=== PATIENT | male | born 1990 | race Caucasian/White ===

== ENCOUNTER 2022-05-12 21:25 | Inpatient (IN) | payer MEDICAID, SELFPAY ==
[2022-05-12 21:31] VITALS: BP 123/88; PULSE 100; RESP 16; TEMP 37.1; O2SAT 96; BMI 23.0
--- NOTE | 2022-05-12 21:54 | CRLHL7_ITS ---
For Patients: As a result of the Century Cures Act, medical imaging exams and procedure reports are released immediately into your electronic medical record. You may view this report before your referring provider. If you have questions, please contact your health care provider. INDICATION: Right lower quadrant pain. Vomiting. TECHNIQUE: CT abdomen and pelvis acquired with 79 mL Isovue 370 contrast. COMPARISON: None. FINDINGS: Lower chest: No focal consolidation. Liver: No suspicious focal hepatic lesion. Gallbladder and bile ducts: Unremarkable. Pancreas: Unremarkable. Spleen: Unremarkable. Adrenal glands: Unremarkable. Kidneys: Kidneys enhance symmetrically, without hydronephrosis. Retroperitoneum: No lymphadenopathy. Bowel and mesentery: Bowel is nonobstructed. Normal appendix. No significant ascites. No pneumoperitoneum. Bladder: Mild circumferential bladder wall thickening. Reproductive organs: No prostatomegaly. Slight asymmetric prominence of the right seminal vesicles. Pelvic lymph nodes: No lymphadenopathy. Vessels: Unremarkable. Abdominal wall: No acute abdominal wall abnormality. Bones: No suspicious/aggressive focal osseous lesion. IMPRESSION: 1. Mild circumferential bladder wall thickening, may reflect cystitis. Recommend correlation with urinalysis. 2. Asymmetric prominence of the right seminal vesicles, which is nonspecific but can be seen in setting of seminal vesiculitis. 3. Normal appendix. Please note that all CT scans at this facility use dose modulation, iterative reconstruction, and/or weight-based dosing when appropriate to reduce radiation dose to as low as reasonably achievable. Dictated by Ita Dunbar MD @ 05/13/2022 12:35:48 AM (Electronically Signed)
--- NOTE | 2022-05-12 21:55 | ED.ABDPAIN ---
HPI - Abdominal Pain General Chief Complaint: Abdominal Pain Stated Complaint: extreme abdomen pain, vomiting Time Seen by Provider: 05/12/22 21:50 History of Present Illness HPI narrative: Pt is a 31 year old Type 1 Diabetic who presents with 2-3 days of lower abd pain. Pain is in the lower abd in the midline and RLQ. Patient has been eating a limited amount and has been having dark stools. Pt has no fever or chills. No nausea or vomiting. Pt has had no similar symptoms. He has not taken any significant pain medication at home and states the pain is sharp and severe. No other symptoms such as chest pain, shortness of breath or dysuria. Related Data Home Medications Medication Instructions Recorded Confirmed novolin R U-100 05/12/22 Allergies Allergy/AdvReac Type Severity Reaction Status Date / Time Penicillins Allergy Hives Verified 05/12/22 21:40 Review of Systems Status of ROS Reports: 10 or more systems reviewed and unremarkable except as noted in History and below [facility] Medical History Diabetes, type I Social History Smoking Status: Former smoker Do you use any of these nicotine containing products: Smokeless Tobacco How often do you have a drink containing alcohol: never AUDIT-C Alcohol total score: 0 Non-prescribed substance use: denies use Exam Narrative: Exam Narrative: EXAM GENERAL: Patient appears ucomfortable. EYES: No scleral icterus. LYMPH: No supraclavicular or cervical lymphadenopathy. SKIN: Visible skin seen during exam normal or with benign process only. EXT: No dependent lower extremity pedal edema. HEART: Regular rate and rhythm with no murmurs, rubs, or gallops. LUNGS: Clear to auscultation bilaterally with no crackles or wheezes. ABD: Tender to palpation in the lower abd with mild peritonitis. Hypoactive bowel sounds. Mild distension. PSYCH: Good eye contact, speech is not pressured. Const: Vital Signs, click to edit/add: Vital Signs - 24 hr 05/12/22 21:31 Temperature 98.8 F Pulse Rate [Right Pulse Oximeter] 100 Respiratory Rate 16 Blood Pressure [Le ft Upper Arm] 123/88 Pulse Oximetry 96 Oxygen Delivery Me thod Room Air Course Course Hospital Course: IV established. CBC, CMP, Lipase, Lactate, Amylase, Urinalysis, CT of abd and pelvis collected Reevaluation(s) Reevaluation #1: Pt without telling us gave himself 30 units of Novulin R insulin. Metabolic panel comes back showing evidence of DKA with Anion Gap of 26. IV started as well as insulin drip. Time: 22:47 Reevaluation #2: Clarification on medication. Pt takes a variable amount of Novlulin R up to 5-6 times per day but has been taking less due to lack of appetite in the past 2 days. Time: 22:53 Reevaluation #3: Pt vomits/coughs up a small amount of bright red blood. CT of abd shows questionable seminal vesiculitis with bladder wall thickening. Normal UA. Time: 00:47 Vital Signs Vital signs: Initial Vital Signs Temperature 98.8 F 05/12/22 21:31 Temperature Source Temporal Artery Scan 05/12/22 21:31 Pulse Rate 100 05/12/22 21:31 Respiratory Rate 16 05/12/22 21:31 Blood Pressure 123/88 05/12/22 21:31 Blood Pressure Mean 99 05/12/22 21:31 Blood Pressure Position Sitting 05/12/22 21:31 Pulse Oximetry 96 05/12/22 21:31 Oxygen Delivery Method 05/12/22 21:31 Vital Signs Temperature 98.8 F 05/12/22 21:31 Pulse Rate 100 05/12/22 21:31 Respiratory Rate 16 05/12/22 21:31 Blood Pressure 123/88 05/12/22 21:31 Pulse Oximetry 96 05/12/22 21:31 Oxygen Delivery Method 05/12/22 21:31 Temperature 98.8 F 05/12/22 21:31 Pulse Rate 100 05/12/22 21:31 Respiratory Rate 16 05/12/22 21:31 Blood Pressure 123/88 05/12/22 21:31 Pulse Oximetry 96 05/12/22 21:31 Oxygen Delivery Method 05/12/22 21:31 MDM - Abdominal Pain MDM Narrative Medical decision making narrative: Pt is a Type 1 Diabetic who has a very unpredictable insulin dosing schedule who presents with abd pain. Pt is noted to have a CO2 of 9 with an anion gap of 26. Pt's CT of abd and pelvis shows seminal vesiculitis and a thickened bladder wall. UA normal. Pt started on a Insulin drip but unknown to us pt gave himself 20 units of Novulin R sq. pH actually comes back slightly alkalotic. Repeat electrolytes pending. Pt will be admitted for DKA. I did culture his blood and gave an initial dose of Cefepime as he is PCN allergic. Difficult to tell the severity of the seminal vesiculitis. Pt then coughed up a blood clot which may have been from his nose. Protonix given. Would recommend serial hemeglobins. Differential Diagnosis Differential diagnosis: Likely abdominal pain, acute appendicitis, calculus of kidney, constipation, diverticulitis, gastroenteritis, pancreatitis and small bowel obstruction Lab Data Labs: Lab Results 05/12/22 05/12/22 05/12/22 Range/Units 21:54 22:05 22:05 WBC 15.16 H (4.50-11.00) K/uL RBC 4.92 (4.30-5.90) m/uL Hgb 14.6 (13.5-17.5) gm/dL Hct 42.5 (37.0-53.0) % MCV 86 (80-100) fL MCH 30 (26-34) pg MCHC 34 (32-36) gm/dL RDW Coeff of Hank 12.2 (11.5-15.5) % Plt Count 288 (140-440) K/uL Neut % (Auto) 82.2 H (42.0-72.0) % Lymph % (Auto) 8.6 L (20-44) % [place] % (Auto) 7.6 (0.0-11.0) % Eos % (Auto) 0.2 (0.0-7.0) % Baso % (Auto) 0.2 (0.0-3.0) % Neut # (Auto) 12.50 H (1.7-7.0) K/uL Lymph # (Auto) 1.30 (0.90-2.90) K/uL [place] # (Auto) 1.20 H (0.00-0.90) K/UL Eos # (Auto) 0.00 (0.00-0.50) K/uL Baso # (Auto) 0.00 (0.00-0.30) K/uL VBG pH (7.32-7.43) VBG pCO2 (40-50) mmHG VBG pO2 (25-47) mmHG VBG HCO3 (21-28) mmol/L Sodium 130 L (135-149) mmol/L Potassium 5.0 (3.6-5.1) mmol/L Chloride 95 L (96-114) mmol/L Carbon Dioxide 9 L* (20-32) mmol/L BUN 16 (5-24) mg/dL Creatinine 1.0 (0.5-1.5) mg/dL Estimated Creat Clear 110.88 Estimated GFR 104 ml/min Glucose 472 H* (60-115) mg/dL Lactate (0.5-1.9) mmol/L Calcium 10.0 (8.4-10.6) mg/dL Total Bilirubin 1.3 (0.1-1.5) mg/dL AST 35 (12-35) U/L ALT 81 H (4-50) U/L Alkaline Phosphatase 148 (40-150) U/L Total Protein 8.3 (6.0-8.3) g/dL Albumin 4.9 (3.3-5.0) g/dL Amylase 56 (18-89) U/L Lipase 25 (23-300) U/L Urine Color Yellow (Yellow) Urine Appearance Clear (Clear) Urine pH 5.0 (5.0-8.5) Ur Specific [place] 1.025 (1.000-1.030) Urine Protein 1+ A (Negative) Urine Glucose (UA) 2+ A (Negative) Urine Ketones 4+ A (Negative) Urine Blood Negative (Negative) Urine Nitrite Negative (Negative) Urine Bilirubin Negative (Negative) Urine Urobilinogen 0.2 (0.2-1.0) Ur Leukocyte Esterase Negative (Negative) Urine RBC 0-2 (0-2) Urine WBC 0-2 (0-5) Ur Squamous Epith Cells Few (None-Few) Urine Bacteria None (None) SARS-CoV-2 (PCR) (Negative) 05/12/22 05/12/22 05/13/22 Range/Units 22:05 22:53 00:17 WBC (4.50-11.00) K/uL RBC (4.30-5.90) m/uL Hgb (13.5-17.5) gm/dL Hct (37.0-53.0) % MCV (80-100) fL MCH (26-34) pg MCHC (32-36) gm/dL RDW Coeff of Hank (11.5-15.5) % Plt Count (140-440) K/uL Neut % (Auto) (42.0-72.0) % Lymph % (Auto) (20-44) % [place] % (Auto) (0.0-11.0) % Eos % (Auto) (0.0-7.0) % Baso % (Auto) (0.0-3.0) % Neut # (Auto) (1.7-7.0) K/uL Lymph # (Auto) (0.90-2.90) K/uL [place] # (Auto) (0.00-0.90) K/UL Eos # (Auto) (0.00-0.50) K/uL Baso # (Auto) (0.00-0.30) K/uL VBG pH 7.468 H (7.32-7.43) VBG pCO2 20 L (40-50) mmHG VBG pO2 61.3 H (25-47) mmHG VBG HCO3 14 L (21-28) mmol/L Sodium (135-149) mmol/L Potassium (3.6-5.1) mmol/L Chloride (96-114) mmol/L Carbon Dioxide (20-32) mmol/L BUN (5-24) mg/dL Creatinine (0.5-1.5) mg/dL Estimated Creat Clear Estimated GFR ml/min Glucose (60-115) mg/dL Lactate 1.7 (0.5-1.9) mmol/L Calcium (8.4-10.6) mg/dL Total Bilirubin (0.1-1.5) mg/dL AST (12-35) U/L ALT (4-50) U/L Alkaline Phosphatase (40-150) U/L Total Protein (6.0-8.3) g/dL Albumin (3.3-5.0) g/dL Amylase (18-89) U/L Lipase (23-300) U/L Urine Color (Yellow) Urine Appearance (Clear) Urine pH (5.0-8.5) Ur Specific [place] (1.000-1.030) Urine Protein (Negative) Urine Glucose (UA) (Negative) Urine Ketones (Negative) Urine Blood (Negative) Urine Nitrite (Negative) Urine Bilirubin (Negative) Urine Urobilinogen (0.2-1.0) Ur Leukocyte Esterase (Negative) Urine RBC (0-2) Urine WBC (0-5) Ur Squamous Epith Cells (None-Few) Urine Bacteria (None) SARS-CoV-2 (PCR) Negative SARS-CoV-2 (Negative) Discharge Plan Discharge Clinical Impression: DKA, type 1 Patient Disposition: Admitted As Inpatient Condition: Stable Activity Level: Other Discharge Diet: Other Prescriptions: No Action novolin R U-100
[2022-05-12 22:15] LABS: Lactate* 1.7 mmol/L (0.5-1.9)
[2022-05-12 22:29] LABS: Basophils Percent Auto 0.2 % (0.0-3.0); Eosinophils Percent Auto 0.2 % (0.0-7.0); Hematocrit 42.5 % (37.0-53.0); Hemoglobin* 14.6 gm/dL (13.5-17.5); Immature Granulocytes Pct Auto 1.2 %; Lymphocytes Percent Auto 8.6 % (20-44); Mean Corpuscular HGB Conc 34 gm/dL (32-36); Mean Corpuscular Hemoglobin 30 pg (26-34); Mean Corpuscular Volume 86 fL (80-100); Monocytes Percent Auto 7.6 % (0.0-11.0); Neutrophils Percent Auto 82.2 % (42.0-72.0); Platelet Count* 288 K/uL (140-440); RDW Coefficient of Variation % 12.2 % (11.5-15.5); Red Blood Count 4.92 m/uL (4.30-5.90); White Blood Count* 15.16 K/uL (4.50-11.00)
[2022-05-12 22:31] LABS: Albumin* 4.9 g/dL (3.3-5.0); Chloride* 95 mmol/L (96-114); Sodium* 130 mmol/L (135-149)
[2022-05-12 22:33] LABS: Amylase* 56 U/L (18-89); Bilirubin Total* 1.3 mg/dL (0.1-1.5); Est. Creatinine Clearance* 110.88; Estimated Glomerular Filt Rate 104 ml/min
[2022-05-12 22:34] LABS: Alanine Aminotransferase* 81 U/L (4-50); Alkaline Phosphatase* 148 U/L (40-150); Aspartate Amino Transferase* 35 U/L (12-35); Blood Urea Nitrogen* 16 mg/dL (5-24); Lipase* 25 U/L (23-300); Slide Review Reflex No; Total Protein* 8.3 g/dL (6.0-8.3)
[2022-05-12 22:41] LABS: Appearance Urine Clear (Clear); Bilirubin Urine Negative (Negative); Blood Urine Negative (Negative); Color Urine Yellow (Yellow); Glucose Urine 2+ (Negative); Ketones Urine 4+ (Negative); Leukocyte Esterase Urine Negative (Negative); Nitrite Urine Negative (Negative); Protein Urine 1+ (Negative); Specific Gravity Urine 1.025 (1.000-1.030); Urobilinogen Urine 0.2 (0.2-1.0)
[2022-05-12 22:43] LABS: Carbon Dioxide* 9 mmol/L (20-32); Glucose* 472 mg/dL (60-115)
--- NOTE | 2022-05-12 22:46 | ED.NURSE ---
Pt took his own Novolin R insulin after triage, updated with critical CO2 and glucose lab results.
[2022-05-12 22:51] LABS: RBC Urine 0-2 (0-2); Squamous Epithelial Cell Urine Few (None-Few); WBC Urine 0-2 (0-5)
[2022-05-12 23:31] LABS: SARS PCR* Negative SARS-CoV-2 (Negative)
[2022-05-12 23:40] VITALS: BP 128/94; PULSE 101; O2SAT 95
[2022-05-12 23:41] VITALS: PULSE 103; O2SAT 97
[2022-05-12] MEDS: INSULIN INF 100 UNIT/100 ML 100 UNIT/100 ML BAG IVPB (23:50)
[2022-05-12 23:51] VITALS: PULSE 104; O2SAT 96
[2022-05-13] VITALS (37 sets, daily range): BP systolic 99–138; BP diastolic 63–95; PULSE 78–104; RESP 11–21; TEMP 36.2–36.9; O2SAT 91–98; BMI 21.3
[2022-05-13 00:20] LABS: HCO3 VBG 14 mmol/L (21-28); PCO2 VBG 20 mmHG (40-50); PO2 VBG 61.3 mmHG (25-47); pH VBG 7.468 (7.32-7.43)
[2022-05-13] MEDS: 0.9 % SODIUM CHLORIDE 1000 ml 1,000 ML IV (00:25)
[2022-05-13] MEDS: ONDANSETRON 2 MG/ML inj 4 MG IVP (00:25)
[2022-05-13] MEDS: HYDROmorphone 0.5 mg/0.5 ml inj IVP ×2 (00:42→09:30)
[2022-05-13 00:58] LABS: Chloride* 104 mmol/L (96-114); Potassium* 4.5 mmol/L (3.6-5.1); Sodium* 135 mmol/L (135-149)
[2022-05-13 01:01] LABS: Creatinine* 0.9 mg/dL (0.5-1.5); Estimated Glomerular Filt Rate 118 ml/min
[2022-05-13 01:02] LABS: Blood Urea Nitrogen* 16 mg/dL (5-24); Calcium* 10.5 mg/dL (8.4-10.6); Glucose* 170 mg/dL (60-115)
[2022-05-13 01:08] LABS: Carbon Dioxide* 8 mmol/L (20-32)
--- NOTE | 2022-05-13 01:15 | ED.NURSE ---
Critical lab called: pCO2 8. Notified. Patient placed on End tidal CO2 nasal cannula with a consistent reading of 34-35. SpO2 95% RA.
[2022-05-13 01:33] LABS: Phosphorus* 3.4 mg/dL (2.5-4.5)
--- NOTE | 2022-05-13 01:59 | W.PC.EDHO ---
Primary Language: Preferred Language: Orientation Status: [x] Alert & Oriented [] Slight Confusion [] Known Dx Dementia Transfers By: [x] Assist of 1 [] Assist of 2 [] Lift Active Medications Generic Name Dose Route Start Last Admin Trade Name Freq PRN Reason Stop Dose Admin Insulin Human (Reg)/Sodium Chloride 100 unit in 100 mls @ 5 mls/hr 05/12/22 23:00 05/13/22 00:25 Insulin Inf 100 Unit/100 Ml IVPB 0 unit/hr .Q20H DANIEL 0 mls/hr Infusion Protocol 5 UNIT/HR Discontinued Medications Generic Name Dose Route Start Last Admin Trade Name Freq PRN Reason Stop Dose Admin Hydromorphone HCl 0.5 mg 05/13/22 00:11 05/13/22 00:42 Hydromorphone 0.5 Mg/0.5 Ml Inj IVP 05/13/22 00:12 0.5 mg ONCE ONE Administration Sodium Chloride 1,000 mls @ 1,000 mls/hr 05/13/22 00:11 05/13/22 00:25 0.9 % Sodium Chloride 1000 Ml IV 05/13/22 01:10 1,000 mls/hr .Q1H DANIEL Administration Ondansetron HCl 4 mg 05/13/22 00:11 05/13/22 00:25 Ondansetron 2 Mg/Ml Inj IVP 05/13/22 00:12 4 mg ONCE ONE Administration Description of Symptoms ED Triage Present Problem abd ulcer like pains for a couple months, has had Description stem therapy with chiropractor. 2 days ago rectal pain started, then burning pain to abdomen, up center of chest, now low back and low abd pain . last 12 hours dark stools, basically black. started vomiting last night poop brown color with black chunks. also sinus pain, probably separate, tooth was pulled, had oral surgery in nov. type 1 diab. dry mouth. very little sleep last 4 days. has taken prn tums, pepto bismol, omeprazole, excedrin Pain Pain Intensity [Lower Abdomen] 5 Pain Scale Used [Lower Abdomen Numeric (1 - 10) ] IV Insertion/Site Date of IV Line Insertion [ 05/12/22 Left Antecubital] Oxygen Administration Pulse Oximetry 95 Pulse Oximetry 96 Pulse Oximetry 96 Pulse Oximetry 94 Pulse Oximetry 96 Pulse Oximetry 97 Pulse Oximetry 97 Pulse Oximetry 95 Pulse Oximetry 95 Pulse Oximetry 96 Pulse Oximetry 97 Pulse Oximetry 95 Pulse Oximetry 96 Oxygen Delivery Method Room Air
--- NOTE | 2022-05-13 02:08 | ED.NURSE ---
Report to accepting MS RN. Patient transported to CCU3 via cart.
--- NOTE | 2022-05-13 03:32 | PM.IMCN1 ---
Date of Consult Consult date: 05/12/22 Requesting Physician: Other (ER provider.) Primary Care Provider: Not a Local Provider Consult Narrative Reason for consult: Admission support and cross coverage services Narrative: [facility] LIBANIST CONSULTATION NOTE: The [facility] hospitalist was contacted by the local ER provider with a request for consultation for admission support and cross coverage services for this patient. [facility] Dr. Edmundo Buck MD. Chief Complaint: Nausea and abdominal pain. HPI: The patient is a 31-year-old gentleman who presented to the emergency room complaining of nausea, lower abdominal pain (especially in the right lower quadrant), and malaise. His illness started about 2 to 3 days ago. He has a history of DM type I which he advises has been hard to control. He self-administered 20 units of regular insulin subcutaneously prior to coming to the ER. He states that he has had a primary care provider in the recent past and has seen combatant diver qualified on more than a couple of occasions. However, recently he has not had active health insurance and so has not had health maintenance assessments, and is not clear on how he is able to afford or obtain insulin to manage his diabetes at home. Patient states that within the last couple of months he has had dental problems and had a upper tooth extraction which resulted in prolonged or chronic sinusitis. He was treated for sinus infection in the past, but not recently, and he has had no fevers, chills or oral or facial swelling. He did note that he has coughed up specks of blood occasionally but felt that this was from his sinusitis. Suspecting infection the ER provider initiated a evaluation to identify a foci of infection and to reassess the status of the DM type I. The patient was found to have a metabolic acidosis with an anion gap. And mild ketosis. His exam findings were generally unremarkable except for some mild lower abdominal tenderness without rebound rigidity. No signs of open or infected skin wounds were found. He appears neurologically normal. The hemogram revealed a WBC of 15,160. NA 130, K5.0, CL 95, CO2 9, BUN 16, creatinine 1.0, and glucose 472. Urinalysis revealed a yellow clear urine with a specific gravity 1.025. Glucose 2+, ketones 4+, blood negative, nitrite negative, and leukocyte esterase, was found. A CT scan of the abdomen and pelvis identified mild circumferential bladder wall thickening consistent with cystitis. There was asymmetric prominence of the right seminal vesicle raising the suspicions of a vesiculitis. The patient was administered an IV dose of cefepime and an insulin infusion was started. The infusion was discontinued in the ER because of a significant drop in the blood glucose levels. However with persistence of an anion gap there was concerned of persisting ketoacidosis. The patient was admitted for further care, with focus on management of the diabetic ketoacidosis and treatment of a cystitis. The patient was given a dose of IV Protonix for GI prophylaxis given the fact that he had some coughing up of blood and small amount. Most likely this related to periodontal disease or upper sinus infection/inflammation. However the ER provider did not feel there was outstanding evidence for GI bleeding and so a evaluation for hematemesis was not initiated. Refer to the ER encounter note for more details. Pertinent PMH: 1. DM type I, history of recent upper sinusitis, history of periodontal disease 2. Also, refer to the problem list in the ER provider's encounter note. History Reviewed In The Medical Record: Home Medications. Pertinent Social History. Recent OPD/ER Progress Notes. EXAM: Performed via an interactive video with the assistance of the bedside nurse. The Bedside RN is Maribell. VS: T98.8.. P 97. RR 16. BP 121/83. SPO2 95%. FIO2 room air. GENERAL: Alert and oriented x person, time, place, and situation. Answers questions appropriately. Follows commands normally. A low level of distress is displayed. Pain level claimed: 5/10, due to RLQ abdominal pain. HEENT: NC/AT. Facial features symmetric. PERRL. EOM function WNL. No jaundice seen. No cyanosis seen. Oropharynx is visualized. No erythema or exudates seen. NECK: Supple. No JVD seen. CHEST: Chest wall is not tender. Respiratory motion appears normal. LUNGS: Breath sounds heard in all lung nunez, bilaterally. No coarse rhonchi heard. No wheezes heard. No rales heard. HEART: RRR. No murmurs heard. No gallops heard. Full, symmetric pulses palpated. ABD: Bowel sounds present in 4 quadrants. Soft. No rebound rigidity or guarding palpated. : Not examined. EXTREMITIES: No dependent leg edema seen. SKIN: No rashes seen. No primary skin lesions identified. NEUROLOGICAL: Awake. Oriented x 4. Moves all extremities purposefully or on command. Cranial nerve 2-12 function WNL. Strength symmetric. No upper extremity pronator drift seen. No tremors seen. No myoclonus seen. LAB Data: Reviewed. Pertinent results discusses above. EKG: None RADIOLOGY REPORTS: Reviewed and discussed above. ASSESSMENT: 1. DKA. 2. DM type I. Historically control has been suboptimal. 3. Cystitis, possibly representing a bacterial UTI. 4. Scant hemoptysis versus hematemesis. There does not appear to be evidence for acute pulmonary disease or GI bleeding 5. Recent history of infectious sinusitis secondary to advanced periodontal disease. 6. Possible medical noncompliance. One of the major contributors at this point is that the patient does not have health insurance. PLANS: 1. The [facility] will provide cross coverage care during this hospitalization. 2. Reassess blood chemistries to establish if the patient has resolution of the anion gap and a normalizing trend of the plasma bicarbonate levels which will allow us to convert to a subcutaneous insulin regimen every 4 hours. 3. Return to IV insulin protocol if there is recurrence of hyperglycemia, free water deficit, metabolic acidosis, and and a progressive anion gap 4. Reassess fluid and electrolyte status replace deficits. 5. Urine culture if not done. 6. Continue empiric antibiotic for cystitis. 7. Advance diet as tolerated. 8. Antiemetics for nausea control. 9. Analgesics for pain management. RECOMMENDATIONS: 1. Reassess abdominal discomfort and RLQ tenderness. 2. Consider imaging of the head and facial bones to identify any evidence of an active bacterial sinusitis. 3. Follow-up on blood culture results. I have reviewed the case in consultation. Information has been gathered from conversations with the local provider, a review of the patient's chart, and by a patient evaluation. Based on the current information and the patient's current medical condition, I certify the patient meets criteria for: [ ] Acute inpatient status with the expectation of a patient stay of more than 2 midnights, but less than 96 hrs. [ ] Swing bed. [XXX] Observation status with an expected stay of less than 2 midnights. Thank you for [facility]. This service is available for further assistance as requested by your care team by calling [phone]. Review of Systems Status of ROS: Reports: 10 or more systems reviewed and unremarkable except as noted in History and below Narrative: See consult note above. [facility] Medical History Diabetes, type I Social History Smoking Status: Current some day smoker What tobacco products do you use: cigarettes Do you use any of these nicotine containing products: Smokeless Tobacco Second hand tobacco smoke exposure: Yes How often do you have a drink containing alcohol: never AUDIT-C Alcohol total score: 0 Non-prescribed substance use: denies use service: No Meds Home Medications and Allergies Home Medications Medication Instructions Recorded Confirmed Type novolin R U-100 05/12/22 History Allergies Allergy/AdvReac Type Severity Reaction Status Date / Time Penicillins Allergy Hives Verified 05/12/22 21:40 Exam Narrative: Exam Narrative: See consult note above. Const: Vital Signs, click to edit/add: Vital Signs - 24 hr 05/12/22 21:31 05/12/22 23:40 05/12/22 23:41 Temperature 98.8 F Pulse Rate 101 H 103 H Pulse Rate [Right Pulse Oximeter] 100 Respiratory Rate 16 Blood Pressure 128/94 H Blood Pressure [Le ft Upper Arm] 123/88 Pulse Oximetry 96 95 97 Oxygen Delivery Me thod Room Air 05/12/22 23:51 05/13/22 00:00 05/13/22 00:02 Temperature Pulse Rate 104 H 104 H 103 H Pulse Rate [Right Pulse Oximeter] Respiratory Rate Blood Pressure 124/89 Blood Pressure [Le ft Upper Arm] Pulse Oximetry 96 95 95 Oxygen Delivery Me thod 05/13/22 00:15 05/13/22 00:31 05/13/22 00:32 Temperature Pulse Rate 104 H 89 95 Pulse Rate [Right Pulse Oximeter] Respiratory Rate Blood Pressure 129/87 127/89 Blood Pressure [Le ft Upper Arm] Pulse Oximetry 97 97 96 Oxygen Delivery Me thod 05/13/22 00:33 05/13/22 00:41 05/13/22 00:45 Temperature Pulse Rate 101 H 97 97 Pulse Rate [Right Pulse Oximeter] Respiratory Rate Blood Pressure 127/84 Blood Pressure [Le ft Upper Arm] Pulse Oximetry 94 96 96 Oxygen Delivery Me thod 05/13/22 00:51 05/13/22 00:52 05/13/22 01:00 Temperature Pulse Rate 97 97 94 Pulse Rate [Right Pulse Oximeter] Respiratory Rate Blood Pressure 121/83 Blood Pressure [Le ft Upper Arm] Pulse Oximetry 95 92 92 Oxygen Delivery Me thod 05/13/22 01:02 05/13/22 01:12 05/13/22 01:15 Temperature Pulse Rate 96 96 Pulse Rate [Right Pulse Oximeter] Respiratory Rate 19 11 L Blood Pressure 138/90 H 135/85 Blood Pressure [Le ft Upper Arm] Pulse Oximetry 94 95 Oxygen Delivery Me thod 05/13/22 01:22 05/13/22 01:30 05/13/22 01:31 Temperature Pulse Rate 102 H 102 H 98 Pulse Rate [Right Pulse Oximeter] Respiratory Rate 14 21 15 Blood Pressure 133/91 H 138/95 H Blood Pressure [Le ft Upper Arm] Pulse Oximetry 96 96 95 Oxygen Delivery Me thod 05/13/22 01:45 05/13/22 01:46 05/13/22 01:51 Temperature Pulse Rate 92 Pulse Rate [Right Pulse Oximeter] Respiratory Rate 17 17 18 Blood Pressure 115/74 120/75 Blood Pressure [Le ft Upper Arm] Pulse Oximetry 95 Oxygen Delivery Me thod 05/13/22 02:00 05/13/22 02:02 Temperature Pulse Rate 96 98 Pulse Rate [Right Pulse Oximeter] Respiratory Rate 17 19 Blood Pressure 119/78 Blood Pressure [Le ft Upper Arm] Pulse Oximetry 95 95 Oxygen Delivery Me thod Labs Labs: Short CBC 05/12/22 Range/Units 22:05 WBC 15.16 H (4.50-11.00) K/uL Hgb 14.6 (13.5-17.5) gm/dL Hct 42.5 (37.0-53.0) % Plt Count 288 (140-440) K/uL BMP 05/12/22 05/13/22 22:05 00:15 Sodium 130 L 135 Potassium 5.0 4.5 Chloride 95 L 104 Carbon Dioxide 9 L* 8 L* BUN 16 16 Creatinine 1.0 0.9 Glucose 472 H* 170 H Calcium 10.0 10.5 Liver Function 05/12/22 Range/Units 22:05 Total Bilirubin 1.3 (0.1-1.5) mg/dL AST 35 (12-35) U/L ALT 81 H (4-50) U/L Alkaline Phosphatase 148 (40-150) U/L Albumin 4.9 (3.3-5.0) g/dL Urine 05/12/22 Range/Units 21:54 Urine Color Yellow (Yellow) Urine Appearance Clear (Clear) Urine pH 5.0 (5.0-8.5) Ur Specific [place] 1.025 (1.000-1.030) Urine Protein 1+ A (Negative) Urine Glucose (UA) 2+ A (Negative) Assessment and Plan Assessment and plan (1) DKA, type 1: Status: Acute (2) Cystitis: Status: Acute Plan See consult note above.
[2022-05-13] MEDS: 0.9 % SODIUM CHLORIDE 1000 ml 1,000 ML 150 ML IV (04:03)
[2022-05-13 04:21] LABS: Chloride* 105 mmol/L (96-114); Potassium* 4.4 mmol/L (3.6-5.1); Sodium* 136 mmol/L (135-149)
[2022-05-13 04:23] LABS: Amylase* 68 U/L (18-89)
[2022-05-13 04:24] LABS: Blood Urea Nitrogen* 15 mg/dL (5-24); Calcium* 9.9 mg/dL (8.4-10.6); Carbon Dioxide* 19 mmol/L (20-32); Creatinine* 0.8 mg/dL (0.5-1.5); Estimated Glomerular Filt Rate 122 ml/min; Glucose* 112 mg/dL (60-115); Lipase* 18 U/L (23-300)
--- NOTE | 2022-05-13 06:42 | PC.NURSE ---
pt to floor with and baby, informed of visitor policy (no children under the age of 12 allowed), ([place]) cussed at staff and said ?f*ck you guys?, very upset stating that her is sick and all he wants is for child to be there, saying ?how dare you kick out a preeclamptic mom to drive 45 mins to home?, flex o writer operator sympathized with , was able to calm her down and inform her that she will be notified with any changes to POC. called and updated at 0430, stated she is trying to find child day care provider and she will come back when she can. ? Pt pleasant and cooperative. Pt was very unsteady on his feet when he got to the floor after Dilaudid admin in ED, pt seems much more alert this AM, bed alarm on.?c/o pain 6/10 in his scrotum, ice pack applied, pillows placed between legs so pt doesn?t close legs as his taurus area is very tender. RLQ very tender to touch. Pt able to rest comfortably after 1x Tylenol codeine given. Pt very thirsty, drinking several glasses of water, no c/o of nausea. Applesauce given as a snack, pt tolerated well. ? Pt states he thinks he still has sinus infection from previous tooth surgery, he took 4 rounds of Z Packs and is having green pus come out of his nose and an icky smell.? Pt has hx of having seizures when his BG gets too low, seizure pads placed. ? ER order - ABX and PPI not given per SENIOR FACILITIES MANAGER. ?
[2022-05-13 07:28] LABS: Basophils Percent Auto 0.2 % (0.0-3.0); Eosinophils Percent Auto 0.6 % (0.0-7.0); Hemoglobin* 12.3 gm/dL (13.5-17.5); Immature Granulocytes Pct Auto 0.3 %; Lymphocytes Percent Auto 12.8 % (20-44); Mean Corpuscular HGB Conc 34 gm/dL (32-36); Mean Corpuscular Hemoglobin 30 pg (26-34); Mean Corpuscular Volume 87 fL (80-100); Monocytes Percent Auto 8.6 % (0.0-11.0); Neutrophils Percent Auto 77.5 % (42.0-72.0); Platelet Count* 243 K/uL (140-440); RDW Coefficient of Variation % 12.2 % (11.5-15.5); Red Blood Count 4.14 m/uL (4.30-5.90); White Blood Count* 13.15 K/uL (4.50-11.00)
[2022-05-13 07:29] LABS: Lactate* 0.8 mmol/L (0.5-1.9)
[2022-05-13 07:33] LABS: Slide Review Reflex No
[2022-05-13] MEDS: OMEPRAZOLE 20 MG CAPSULE DR 40 MG PO (07:40)
[2022-05-13 07:42] LABS: Chloride* 101 mmol/L (96-114)
[2022-05-13 07:43] LABS: Albumin* 3.8 g/dL (3.3-5.0); Potassium* 4.4 mmol/L (3.6-5.1); Sodium* 130 mmol/L (135-149)
[2022-05-13 07:45] LABS: Creatinine* 0.8 mg/dL (0.5-1.5); Est. Creatinine Clearance* 128.81; Estimated Glomerular Filt Rate 122 ml/min
[2022-05-13 07:46] LABS: Alanine Aminotransferase* 62 U/L (4-50); Alkaline Phosphatase* 109 U/L (40-150); Aspartate Amino Transferase* 29 U/L (12-35); Bilirubin Total* 1.1 mg/dL (0.1-1.5); Blood Urea Nitrogen* 12 mg/dL (5-24); Carbon Dioxide* 15 mmol/L (20-32); Glucose* 301 mg/dL (60-115); Total Protein* 6.7 g/dL (6.0-8.3)
[2022-05-13 07:47] LABS: Calcium* 8.7 mg/dL (8.4-10.6)
[2022-05-13 07:48] LABS: Magnesium* 1.6 mg/dL (1.5-2.6)
[2022-05-13 08:03] LABS: Procalcitonin* 0.63 ng/mL (<0.50)
--- NOTE | 2022-05-13 08:04 | CRLHL7_ITS ---
For Patients: As a result of the Century Cures Act, medical imaging exams and procedure reports are released immediately into your electronic medical record. You may view this report before your referring provider. If you have questions, please contact your health care provider. Indication: Asymmetric prominence of right seminal vesicle. Technique: Ultrasound of the scrotum and contents. Sonographic piña-scale images were obtained with spectral and color Doppler waveform and spectral waveform analysis of the testicles. Comparison: None. Findings: Bother testicles are normal in size and echotexture. No masses. No suspicious calcifications. Arterial and venous color Doppler blood flow and spectral waveforms are present in both testicles. Epididymis: Hyperemia demonstrated in the right epididymis. Normal left epididymis. Other: No significant hydrocele. No sign of varicocele. Scrotal wall is normal. Impression: Right-sided epididymitis. Testicles and remainder of the exam are unremarkable. Dictated by Sharath Sheldon MD @ 05/13/2022 10:34:20 AM (Electronically Signed)
[2022-05-13] MEDS: ERTAPENEM 1 GM in 0.9 % SODIUM CHLORIDE Mini-bag 100 ML IVPB (09:53)
[2022-05-13] MEDS: PANTOPRAZOLE SODIUM 40 MG INJ IVP (09:54)
[2022-05-13] MEDS: 5 % DEX/0.45 SOD CHL+KCL20 mEq 1,000 ML 125 ML IV ×2 (10:23→18:13)
[2022-05-13] MEDS: INSULIN INF 100 UNIT/100 ML 100 UNIT/100 ML BAG IVPB (10:23)
[2022-05-13] MEDS: LACTATED RINGERS 1000 ML 500 ML IV ×2 (10:44→11:28)
--- NOTE | 2022-05-13 11:40 | P.IMHP_ITS ---
Hospitalist- H&P: HPI History of Present Illness Date Seen: 05/15/22 Chief complaint: extreme abdomen pain, vomiting Narrative: Norbert Hearn is a 31 year old male with past medical history of Type I DM who was admitted overnight for evaluation of DKA. Per patient he has had one day of nausea, vomiting, intermittent abdominal pain. He also endorses testicular pain. He states he is sexually active with his . He denies fever, chest pain, sob. in the ED notable labs included WBC 15, Bicarb 8, serum glucose 170. He was started on insulin infusion, IVF and cefepime. CT AP showed IMPRESSION: 1. Mild circumferential bladder wall thickening, may reflect cystitis. Recommend correlation with urinalysis. 2. Asymmetric prominence of the right seminal vesicles, which is nonspecific but can be seen in setting of seminal vesiculitis. 3. Normal appendix. He continues to endorse right testicular pain. Repeat AM labs showing Bicarb 15, normal lactate. Stat US ordered this AM Right-sided epididymitis. Testicles and remainder of the exam are unremarkable. Review of Systems Status of ROS: Reports: 10 or more systems reviewed and unremarkable except as noted in History and below [facility] Medical History Diabetes, type I Social History Smoking Status: Current some day smoker What tobacco products do you use: cigarettes Do you use any of these nicotine containing products: Smokeless Tobacco Second hand tobacco smoke exposure: Yes How often do you have a drink containing alcohol: never AUDIT-C Alcohol total score: 0 Non-prescribed substance use: denies use service: No Meds Home Medications and Allergies Home Medications Medication Instructions Recorded Confirmed Type insulin regular human 100 unit/mL 1 sliding scale dose subcut 05/13/22 05/13/22 History injection solution (Humulin R USEASDIRECTD Regular U-100 Insulin) Allergies Allergy/AdvReac Type Severity Reaction Status Date / Time Penicillins Allergy Hives Verified 05/12/22 21:40 Exam Narrative: Exam Narrative: Gen: no acute distress HEENT: NCAT EOMI mmm Neck: Supple CV: RRR normal s1 s2 Lungs: CTAB Abd: Soft,nt, nd Neuro: Alert, oriented, CN grossly intact; nonfocal screening?exam Psych: appropriate affect MSK: age appropriate muscle mass Skin; Warm, dry no rash on face : right testicular tenderness Const: Vital Signs, click to edit/add: Vital Signs - 24 hr 05/12/22 21:31 05/12/22 23:40 05/12/22 23:41 Temperature 98.8 F Pulse Rate 101 H 103 H Pulse Rate [Pulse Oximeter] Pulse Rate [Right Pulse Oximeter] 100 Respiratory Rate 16 Blood Pressure 128/94 H Blood Pressure [Le ft Upper Arm] 123/88 Blood Pressure [Ri ght Arm] Pulse Oximetry 96 95 97 Oxygen Delivery Me thod Room Air 05/12/22 23:51 05/13/22 00:00 05/13/22 00:02 Temperature Pulse Rate 104 H 104 H 103 H Pulse Rate [Pulse Oximeter] Pulse Rate [Right Pulse Oximeter] Respiratory Rate Blood Pressure 124/89 Blood Pressure [Le ft Upper Arm] Blood Pressure [Ri ght Arm] Pulse Oximetry 96 95 95 Oxygen Delivery Me thod 05/13/22 00:15 05/13/22 00:31 05/13/22 00:32 Temperature Pulse Rate 104 H 89 95 Pulse Rate [Pulse Oximeter] Pulse Rate [Right Pulse Oximeter] Respiratory Rate Blood Pressure 129/87 127/89 Blood Pressure [Le ft Upper Arm] Blood Pressure [Ri ght Arm] Pulse Oximetry 97 97 96 Oxygen Delivery Me thod 05/13/22 00:33 05/13/22 00:41 05/13/22 00:45 Temperature Pulse Rate 101 H 97 97 Pulse Rate [Pulse Oximeter] Pulse Rate [Right Pulse Oximeter] Respiratory Rate Blood Pressure 127/84 Blood Pressure [Le ft Upper Arm] Blood Pressure [Ri ght Arm] Pulse Oximetry 94 96 96 Oxygen Delivery Me thod 05/13/22 00:51 05/13/22 00:52 05/13/22 01:00 Temperature Pulse Rate 97 97 94 Pulse Rate [Pulse Oximeter] Pulse Rate [Right Pulse Oximeter] Respiratory Rate Blood Pressure 121/83 Blood Pressure [Le ft Upper Arm] Blood Pressure [Ri ght Arm] Pulse Oximetry 95 92 92 Oxygen Delivery Me thod 05/13/22 01:02 05/13/22 01:12 05/13/22 01:15 Temperature Pulse Rate 96 96 Pulse Rate [Pulse Oximeter] Pulse Rate [Right Pulse Oximeter] Respiratory Rate 19 11 L Blood Pressure 138/90 H 135/85 Blood Pressure [Le ft Upper Arm] Blood Pressure [Ri ght Arm] Pulse Oximetry 94 95 Oxygen Delivery Me thod 05/13/22 01:22 05/13/22 01:30 05/13/22 01:31 Temperature Pulse Rate 102 H 102 H 98 Pulse Rate [Pulse Oximeter] Pulse Rate [Right Pulse Oximeter] Respiratory Rate 14 21 15 Blood Pressure 133/91 H 138/95 H Blood Pressure [Le ft Upper Arm] Blood Pressure [Ri ght Arm] Pulse Oximetry 96 96 95 Oxygen Delivery Me thod 05/13/22 01:45 05/13/22 01:46 05/13/22 01:51 Temperature Pulse Rate 92 Pulse Rate [Pulse Oximeter] Pulse Rate [Right Pulse Oximeter] Respiratory Rate 17 17 18 Blood Pressure 115/74 120/75 Blood Pressure [Le ft Upper Arm] Blood Pressure [Ri ght Arm] Pulse Oximetry 95 Oxygen Delivery Me od 05/13/22 02:00 05/13/22 02:02 05/13/22 05:22 Temperature 97.2 F L Pulse Rate 96 98 Pulse Rate [Pulse Oximeter] 85 Pulse Rate [Right Pulse Oximeter] Respiratory Rate 17 19 20 Blood Pressure 119/78 Blood Pressure [Le ft Upper Arm] Blood Pressure [Ri ght Arm] 106/73 Pulse Oximetry 95 95 97 Oxygen Delivery [facility] Room Air 05/13/22 05:22 05/13/22 03:43 05/13/22 07:00 Temperature 97.9 F Pulse Rate Pulse Rate [Pulse Oximeter] 88 Pulse Rate [Right Pulse Oximeter] Respiratory Rate 20 16 Blood Pressure Blood Pressure [Le ft Upper Arm] Blood Pressure [Ri ght Arm] 114/76 Pulse Oximetry 97 98 96 Oxygen Delivery Me [facility] Room Air Room Air 05/13/22 07:00 05/13/22 09:15 05/13/22 11:00 Temperature Pulse Rate 90 Pulse Rate [Pulse Oximeter] 86 94 Pulse Rate [Right Pulse Oximeter] Respiratory Rate 16 14 Blood Pressure Blood Pressure [Le ft Upper Arm] Blood Pressure [Ri ght Arm] 114/67 Pulse Oximetry 94 Oxygen Delivery Me od Room Air Hospitalist - H&P: Result Labs Labs: Short CBC 05/12/22 05/13/22 05/13/22 Range/Units 22:05 07:16 07:16 WBC 15.16 H 13.15 H Cancelled (4.50-11.00) K/uL Hgb 14.6 12.3 L Cancelled (13.5-17.5) gm/dL Hct 42.5 36.0 L Cancelled (37.0-53.0) % Plt Count 288 243 Cancelled (140-440) K/uL BMP 05/12/22 05/13/22 05/13/22 22:05 00:15 02:20 Sodium 130 L 135 136 Potassium 5.0 4.5 4.4 Chloride 95 L 104 105 Carbon Dioxide 9 L* 8 L* 19 L BUN 16 16 15 Creatinine 1.0 0.9 0.8 Glucose 472 H* 170 H 112 Calcium 10.0 10.5 9.9 05/13/22 05/13/22 07:16 07:31 Sodium Cancelled 130 L Potassium Cancelled 4.4 Chloride Cancelled 101 Carbon Dioxide Cancelled 15 L BUN Cancelled 12 Creatinine Cancelled 0.8 Glucose Cancelled 301 H Calcium Cancelled 8.7 Liver Function 05/12/22 05/13/22 05/13/22 Range/Units 22:05 07:16 07:31 Total Bilirubin 1.3 Cancelled 1.1 (0.1-1.5) mg/dL Direct Bilirubin Cancelled AST 35 Cancelled 29 (12-35) U/L ALT 81 H Cancelled 62 H (4-50) U/L Alkaline Phosphatase 148 Cancelled 109 (40-150) U/L Albumin 4.9 Cancelled 3.8 (3.3-5.0) g/dL Urine 05/12/22 Range/Units 21:54 Urine Color Yellow (Yellow) Urine Appearance Clear (Clear) Urine pH 5.0 (5.0-8.5) Ur Specific [place] 1.025 (1.000-1.030) Urine Protein 1+ A (Negative) Urine Glucose (UA) 2+ A (Negative) Assessment and Plan Assessment and plan (1) DKA, type 1: Problem comment: - secondary to noncompliance, insulin insecurity, infection - currently doesn't have PCP (buys insulin OTC at [facility]) Status: Acute Assessment and Plan: -check A1c -restart insulin infusion -npo till Bicarb normalizes and AG closes -IVF bolus+MIVF -serial electrolyte monitoring and replacement as needed (2) Epididymitis: Problem comment: - on Ceftriaxone (05/14) and Doxy (05/14) - currently has negative STI panel - has had 2 ultrasounds, most recent results (05/14) below: Findings: The right testis measures 4.2 x 2.3 x 3.3 cm and the left testis measures 4.8 x 2.6 x 2.3 cm. Enlarged right epididymis with markedly increased vascularity involving the right epididymis. Possible increase in vascularity involving the right testicle; rule out orchitis. Normal blood flow to the left testicle and epididymis. IMPRESSION: 1. Markedly increased vascularity to the right epididymis with increase in size of the epididymis indicating epididymitis. 2. No intratesticular pathology. 3. Questionable increase in blood flow to the right testicle. Status: Acute Plan Empirically started on ertapenem prior to US results finalizing; likely can de- escalate tomorrow. check STD panel Code-Full DVT ppx-lovenox GI Ppx-Protonix
[2022-05-13 12:21] LABS: Lactate Sepsis w/Reflex* 2.7 mmol/L (0.5-1.9)
[2022-05-13 12:34] LABS: Chloride* 102 mmol/L (96-114); Potassium* 4.4 mmol/L (3.6-5.1); Sodium* 131 mmol/L (135-149)
[2022-05-13 12:37] LABS: Blood Urea Nitrogen* 12 mg/dL (5-24); Calcium* 8.9 mg/dL (8.4-10.6); Carbon Dioxide* 15 mmol/L (20-32); Creatinine* 0.8 mg/dL (0.5-1.5); Est. Creatinine Clearance* 128.81; Estimated Glomerular Filt Rate 122 ml/min; Glucose* 302 mg/dL (60-115)
[2022-05-13 12:54] LABS: Procalcitonin* 0.63 ng/mL (<0.50)
[2022-05-13] MEDS: ENOXAPARIN 40 MG/0.4 ML INJ SUBCUT (13:04)
[2022-05-13] MEDS: KETOROLAC 15 MG/ML inj IVP (13:04)
--- NOTE | 2022-05-13 13:25 | PC.NURSE ---
Update-- Update given via telephone to Gabrielle, pt's mother, with verbal permission from patient. All questions answered.
[2022-05-13] MEDS: DEXTROSE 50 % SYRINGE IVP ×2 (13:34→15:12)
[2022-05-13 14:18] LABS: HIV 1/2/P24 Combo Screen* Negative (Negative)
[2022-05-13 14:55] LABS: Lactate Sepsis 2 Hour 0.7 mmol/L (0.5-1.9)
[2022-05-13 15:13] LABS: Chloride* 105 mmol/L (96-114)
[2022-05-13 15:14] LABS: Potassium* 3.6 mmol/L (3.6-5.1); Sodium* 133 mmol/L (135-149)
[2022-05-13 15:16] LABS: Carbon Dioxide* 23 mmol/L (20-32); Creatinine* 0.7 mg/dL (0.5-1.5); Est. Creatinine Clearance* 147.21; Estimated Glomerular Filt Rate 127 ml/min
[2022-05-13 15:17] LABS: Blood Urea Nitrogen* 11 mg/dL (5-24); Calcium* 8.6 mg/dL (8.4-10.6); Glucose* 131 mg/dL (60-115)
[2022-05-13 16:26] LABS: Lab Add On Test New Spec Needed
--- NOTE | 2022-05-13 16:35 | PM.EN ---
Chart Event Note Date Seen: 05/13/22 Chart Event Note: reviewed 3 pm labs: gap is 5 bicarb is now normal blood sugar 110 -stop drip -NPH 10 units BID with sliding scale -advance diet as tolerated -keep fluids going as he is not really awake and eating yet -pt is [employer] patient -long acting insulin, pumps, etc are not realistic -my thought: NPH twice daily (1,000 units $75 at [facility]) with regular insulin to cover carb loads -if he stays until Sunday - have social work take a new look at government insurance programs.
[2022-05-13] MEDS: INSULIN NPH 100 UNIT/ML 10 UNIT SUBCUT (17:04)
[2022-05-13] MEDS: OXYCODONE 5 MG TABLET PO (17:43)
[2022-05-13 18:22] LABS: Chloride* 104 mmol/L (96-114); Potassium* 4.2 mmol/L (3.6-5.1); Sodium* 132 mmol/L (135-149)
[2022-05-13 18:25] LABS: Blood Urea Nitrogen* 10 mg/dL (5-24); Carbon Dioxide* 19 mmol/L (20-32); Creatinine* 0.7 mg/dL (0.5-1.5); Est. Creatinine Clearance* 147.21; Estimated Glomerular Filt Rate 127 ml/min; Glucose* 239 mg/dL (60-115)
[2022-05-13 18:26] LABS: Calcium* 8.6 mg/dL (8.4-10.6)
[2022-05-13 18:28] LABS: Hemoglobin A1C* 9.42 % (0-5.6)
--- NOTE | 2022-05-13 18:31 | PC.NURSE ---
End of shift-- Pleasant and cooperative, alert and oriented patient. Drowsy and sleeping most of the day. VSS, though pressures are soft, and pt is afebrile. SPO2 maintained >90% on RA. Patient c/o pain in his right testicle and a headache which he rated from 5-10 out of 10 that increases with movement and is very tender to touch, but appears well managed with Tylenol 3, Toradol and Oxycodone. BS taken q1h today and have ranged from 110-298. Insulin drip started at 1030 this morning per MD order and discontinued per MD order at 1630. See med titration sheet for details. Pt was also given 10units NPH insulin and 6 units NovoLog this evening since drip was discontinued. Telemetry shows NSR. LS CTA. He denied nausea and is eating only bites of fruit and juice so far this evening. He was up to the BR with SBA and has voided a total of 1100mls clear, straw colored urine since 0700 today. Father was at bedside this morning and appears loving and supportive. SO was at bedside this afternoon. SO appears loving toward patient, however, she expressed frustration regarding patient's mother having any information about patient and asked numerous times for patient to retract the permission he had given for his mother and stepfather to have information. Pt appeared to be conflicted and irritated with SO and stated, I just don't want any drama. I just want to lay here and sleep. Visitor policy was reviewed with charge nurse and chief transfer and pumphouse operator and SO was advised of current policy. She stated that she already expressed her opinion, about it, but she has been cooperative. Report to oncoming shift.
[2022-05-13 19:36] LABS: Chlamydia DNA Amplified* NOT DETECTED (No Detected); GC DNA Amplified* NOT DETECTED (No Detected)
[2022-05-13] MEDS: 0.9 % SODIUM CH + KCL 20 mEq/L 1,000 ML 125 ML IV (19:52)
[2022-05-13] MEDS: CETIRIZINE HCL 10 MG TABLET PO (20:25)
[2022-05-13 22:40] LABS: HCO3 VBG 22 mmol/L (21-28); PCO2 VBG 36 mmHG (40-50); PO2 VBG 88.7 mmHG (25-47); pH VBG 7.395 (7.32-7.43)
[2022-05-13 23:03] LABS: Chloride* 104 mmol/L (96-114); Potassium* 4.8 mmol/L (3.6-5.1); Sodium* 131 mmol/L (135-149)
[2022-05-13 23:06] LABS: Carbon Dioxide* 19 mmol/L (20-32); Creatinine* 0.6 mg/dL (0.5-1.5); Est. Creatinine Clearance* 171.75; Estimated Glomerular Filt Rate 133 ml/min
[2022-05-13 23:07] LABS: Blood Urea Nitrogen* 10 mg/dL (5-24); Calcium* 8.5 mg/dL (8.4-10.6); Glucose* 304 mg/dL (60-115)
[2022-05-14] VITALS (14 sets, daily range): BP systolic 98–118; BP diastolic 63–76; PULSE 79–101; RESP 14–20; TEMP 36.7–38.2; O2SAT 91–95
[2022-05-14] MEDS: OXYCODONE 5 MG TABLET PO ×3 (01:10→18:43)
[2022-05-14] MEDS: 0.9 % SODIUM CH + KCL 20 mEq/L 1,000 ML 125 ML IV (03:57)
[2022-05-14 05:24] LABS: Basophils Absolute Auto 0.03 K/uL (0.00-0.30); Basophils Percent Auto 0.3 % (0.0-3.0); Eosinophils Percent Auto 1.1 % (0.0-7.0); Hematocrit 31.6 % (37.0-53.0); Hemoglobin* 10.8 gm/dL (13.5-17.5); Immature Granulocytes Abs Auto 0.03 K/uL (0.00-0.30); Immature Granulocytes Pct Auto 0.3 %; Lymphocytes Percent Auto 11.9 % (20-44); Mean Corpuscular HGB Conc 34 gm/dL (32-36); Mean Corpuscular Hemoglobin 30 pg (26-34); Mean Corpuscular Volume 87 fL (80-100); Monocytes Percent Auto 9.8 % (0.0-11.0); Neutrophils Percent Auto 76.6 % (42.0-72.0); Platelet Count* 199 K/uL (140-440); RDW Coefficient of Variation % 12.2 % (11.5-15.5); Red Blood Count 3.62 m/uL (4.30-5.90); White Blood Count* 8.79 K/uL (4.50-11.00)
[2022-05-14 05:30] LABS: Slide Review Reflex No
[2022-05-14 05:39] LABS: Chloride* 105 mmol/L (96-114); Potassium* 3.9 mmol/L (3.6-5.1); Sodium* 133 mmol/L (135-149)
[2022-05-14 05:41] LABS: Creatinine* 0.6 mg/dL (0.5-1.5); Est. Creatinine Clearance* 171.75; Estimated Glomerular Filt Rate 133 ml/min
[2022-05-14 05:42] LABS: Blood Urea Nitrogen* 7 mg/dL (5-24); Calcium* 8.4 mg/dL (8.4-10.6); Carbon Dioxide* 23 mmol/L (20-32); Glucose* 172 mg/dL (60-115)
--- NOTE | 2022-05-14 06:48 | PC.NURSE ---
Shift note: Blood glucose check Q2hr throughout the night, values fluctuate from 100th to over 300th, sliding scale Novolog administered once. Pain treated per eMAR with some relief and pt is able to rest. He ambulates to the bathroom, voids, passes gas, he remains drowsy and wakes up to his name after several attempts.
[2022-05-14] MEDS: OMEPRAZOLE 20 MG CAPSULE DR 40 MG PO (06:57)
[2022-05-14] MEDS: KETOROLAC 15 MG/ML inj IVP ×3 (07:55→22:49)
[2022-05-14] MEDS: SODIUM CHLORIDE 0.9 % (FLUSH) 10 ML SYRINGE 5 ML IVF ×3 (07:58→21:50)
--- NOTE | 2022-05-14 08:01 | CRLHL7_ITS ---
For Patients: As a result of the Century Cures Act, medical imaging exams and procedure reports are released immediately into your electronic medical record. You may view this report before your referring provider. If you have questions, please contact your health care provider. INDICATION: Right testicular tenderness. COMPARISON: CT abdomen and pelvis May 12, 2022; testicular ultrasound May 13, 2022. Technique: Testicular ultrasound; color Doppler duplex assessment. Findings: The right testis measures 4.2 x 2.3 x 3.3 cm and the left testis measures 4.8 x 2.6 x 2.3 cm. Enlarged right epididymis with markedly increased vascularity involving the right epididymis. Possible increase in vascularity involving the right testicle; rule out orchitis. Normal blood flow to the left testicle and epididymis. IMPRESSION: 1. Markedly increased vascularity to the right epididymis with increase in size of the epididymis indicating epididymitis. 2. No intratesticular pathology. 3. Questionable increase in blood flow to the right testicle. Dictated by Brett Woods MD @ 05/14/2022 10:19:07 AM (Electronically Signed)
[2022-05-14] MEDS: 0.9 % SODIUM CHLORIDE 1000 ml 1,000 ML IV (08:25)
[2022-05-14 08:41] LABS: Lactate Sepsis w/Reflex* 1.3 mmol/L (0.5-1.9)
[2022-05-14] MEDS: HYDROmorphone 0.5 mg/0.5 ml inj IVP (08:59)
--- NOTE | 2022-05-14 09:05 | CRLHL7_ITS ---
For Patients: As a result of the Century Cures Act, medical imaging exams and procedure reports are released immediately into your electronic medical record. You may view this report before your referring provider. If you have questions, please contact your health care provider. Indication: Left upper arm palpable lump. Technique: Ultrasound left upper extremity nonvascular with color Doppler analysis. Comparison: None. Findings/Impression: There is generalized edema in the left arm area of concern. No focal mass or fluid collection. No other abnormality evident. Dictated by Sharath Sheldon MD @ 05/14/2022 10:12:46 AM (Electronically Signed)
[2022-05-14 09:37] LABS: Procalcitonin* 0.42 ng/mL (<0.50)
[2022-05-14] MEDS: PANTOPRAZOLE SODIUM 40 MG INJ IVP (09:48)
[2022-05-14] MEDS: 0.9 % SODIUM CHLORIDE 1000 ml 1,000 ML 125 ML IV ×2 (09:48→20:26)
[2022-05-14] MEDS: INSULIN NPH 100 UNIT/ML 10 UNIT SUBCUT (09:49)
--- NOTE | 2022-05-14 10:01 | P.IMPN_ITS ---
Progress Note: A&P Assessment and plan (1) DKA, type 1: Problem details: secondary to noncompliance and infection Status: Acute Assessment and Plan: A1c 9.4, tranistioned to NPH, increase NPH 10 units BID to 14 BID. SW consult tomorrow for financial assistance. continue SSI (2) Sepsis: Problem details: secondary to #3. Febrile and tachycardic this morning; wbc normalized, recheck UA, Blood Cx, lactate, IVF bolus +MIVF Status: Acute (3) Epididymitis: Problem details: started on cefepime; switched to ertapenem; pcn allergy; STD panel ordered. scrotal US no evidence of torsion Status: Acute Assessment and Plan: repeat US given increased pain and scrotal swelling to evaluate for torsion Time Spent With Patient Total time spent: 35 Subjective Date Seen: 05/14/22 Interval history: pt c/o increased scrotal pain and edema febrile and tachycardic this morning denies nausea and vomiting Exam Narrative: Exam Narrative: Gen: no acute distress HEENT: NCAT EOMI mmm CV: RRR normal s1 s2 Lungs: CTAB Abd: Soft,nt, nd Neuro: Alert, oriented, CN grossly intact; nonfocal screening?exam Psych:falt affect affect MSK: age appropriate muscle mass; LUE swelling : increased scrotal edema Const: Vital Signs, click to edit/add: Vital Signs - 24 hr 05/13/22 11:00 05/13/22 10:52 05/13/22 12:30 Temperature Pulse Rate Pulse Rate [Pulse Oximeter] 94 94 86 Respiratory Rate 14 16 16 Blood Pressure [Le ft Arm] Blood Pressure [Ri ght Arm] 114/67 109/67 Pulse Oximetry 94 91 Oxygen Delivery Me thod Room Air Room Air 05/13/22 14:00 05/13/22 10:30 05/13/22 17:00 Temperature 98.1 F Pulse Rate Pulse Rate [Pulse Oximeter] 78 86 81 Respiratory Rate 16 16 16 Blood Pressure [Le ft Arm] 99/66 Blood Pressure [Ri ght Arm] 109/64 105/71 Pulse Oximetry 95 93 93 Oxygen Delivery Me thod Room Air Room Air Room Air 05/13/22 16:11 05/13/22 18:53 05/13/22 19:40 Temperature 98.4 F Pulse Rate 81 Pulse Rate [Pulse Oximeter] 81 84 Respiratory Rate 16 16 Blood Pressure [Le ft Arm] 115/69 Blood Pressure [Ri ght Arm] Pulse Oximetry 93 Oxygen Delivery Me thod Room Air 05/13/22 20:00 05/13/22 23:00 05/14/22 00:15 Temperature 98.4 F Pulse Rate Pulse Rate [Pulse Oximeter] 84 91 94 Respiratory Rate 16 14 14 Blood Pressure [Le ft Arm] 108/63 Blood Pressure [Ri ght Arm] Pulse Oximetry 95 Oxygen Delivery Me thod Room Air 05/14/22 04:00 05/14/22 02:50 05/14/22 04:00 Temperature 98.2 F Pulse Rate 99 Pulse Rate [Pulse Oximeter] 96 Respiratory Rate 16 Blood Pressure [Le ft Arm] 113/70 Blood Pressure [Ri ght Arm] Pulse Oximetry 95 95 Oxygen Delivery Me thod Room Air 05/14/22 04:00 05/14/22 07:55 05/14/22 07:00 Temperature 100.4 F H 100.4 F H Pulse Rate Pulse Rate [Pulse Oximeter] 91 101 H Respiratory Rate 16 20 Blood Pressure [Le ft Arm] 115/68 Blood Pressure [Ri ght Arm] Pulse Oximetry 95 Oxygen Delivery Me thod Room Air 05/14/22 08:00 Temperature Pulse Rate Pulse Rate [Pulse Oximeter] 101 H Respiratory Rate 20 Blood Pressure [Le ft Arm] Blood Pressure [Ri ght Arm] Pulse Oximetry Oxygen Delivery Me thod Labs Labs: Laboratory Results - last 24 hr 05/13/22 05/13/22 05/13/22 11:46 12:15 12:15 WBC RBC Hgb Hct MCV MCH MCHC RDW Coeff of Hank Plt Count Neut % (Auto) Lymph % (Auto) [place] % (Auto) Eos % (Auto) Baso % (Auto) Neut # (Auto) Lymph # (Auto) [place] # (Auto) Eos # (Auto) Baso # (Auto) VBG pH VBG pCO2 VBG pO2 VBG HCO3 Sodium 131 L Potassium 4.4 Chloride 102 Carbon Dioxide 15 L BUN 12 Creatinine 0.8 Estimated Creat Clear 128.81 Estimated GFR 122 Glucose 302 H Hemoglobin A1c Lactic Acid F/U @ 2Hr Calcium 8.9 Ammonia Lactate Baseline 2.7 H Procalcitonin 0.63 H C.trachomatis Ampl DNA HIV 1&2 Ab/P24 Ag 4thGn Negative N.gonorrhoeae Ampl DNA 05/13/22 05/13/22 05/13/22 14:50 14:50 17:36 WBC RBC Hgb Hct MCV MCH MCHC RDW Coeff of Hank Plt Count Neut % (Auto) Lymph % (Auto) [place] % (Auto) Eos % (Auto) Baso % (Auto) Neut # (Auto) Lymph # (Auto) [place] # (Auto) Eos # (Auto) Baso # (Auto) VBG pH VBG pCO2 VBG pO2 VBG HCO3 Sodium 133 L Potassium 3.6 Chloride 105 Carbon Dioxide 23 BUN 11 Creatinine 0.7 Estimated Creat Clear 147.21 Estimated GFR 127 Glucose 131 H Hemoglobin A1c Lactic Acid F/U @ 2Hr 0.7 Calcium 8.6 Ammonia Lactate Baseline Procalcitonin C.trachomatis Ampl DNA NOT DETECTED HIV 1&2 Ab/P24 Ag 4thGn N.gonorrhoeae Ampl DNA NOT DETECTED 05/13/22 05/13/22 05/13/22 17:54 18:00 22:27 WBC RBC Hgb Hct MCV MCH MCHC RDW Coeff of Hank Plt Count Neut % (Auto) Lymph % (Auto) [place] % (Auto) Eos % (Auto) Baso % (Auto) Neut # (Auto) Lymph # (Auto) [place] # (Auto) Eos # (Auto) Baso # (Auto) VBG pH VBG pCO2 VBG pO2 VBG HCO3 Sodium 132 L 131 L Potassium 4.2 4.8 Chloride 104 104 Carbon Dioxide 19 L 19 L BUN 10 10 Creatinine 0.7 0.6 Estimated Creat Clear 147.21 171.75 Estimated GFR 127 133 Glucose 239 H 304 H Hemoglobin A1c 9.42 H Lactic Acid F/U @ 2Hr Calcium 8.6 8.5 Ammonia Lactate Baseline Procalcitonin C.trachomatis Ampl DNA HIV 1&2 Ab/P24 Ag 4thGn N.gonorrhoeae Ampl DNA 05/13/22 05/14/22 05/14/22 22:27 05:18 05:18 WBC 8.79 RBC 3.62 L Hgb 10.8 L Hct 31.6 L MCV 87 MCH 30 MCHC 34 RDW Coeff of Hank 12.2 Plt Count 199 Neut % (Auto) 76.6 H Lymph % (Auto) 11.9 L [place] % (Auto) 9.8 Eos % (Auto) 1.1 Baso % (Auto) 0.3 Neut # (Auto) 6.70 Lymph # (Auto) 1.00 [place] # (Auto) 0.90 Eos # (Auto) 0.10 Baso # (Auto) 0.03 VBG pH 7.395 VBG pCO2 36 L VBG pO2 88.7 H VBG HCO3 22 Sodium 133 L Potassium 3.9 Chloride 105 Carbon Dioxide 23 BUN 7 Creatinine 0.6 Estimated Creat Clear 171.75 Estimated GFR 133 Glucose 172 H Hemoglobin A1c Lactic Acid F/U @ 2Hr Calcium 8.4 Ammonia Lactate Baseline Procalcitonin C.trachomatis Ampl DNA HIV 1&2 Ab/P24 Ag 4thGn N.gonorrhoeae Ampl DNA 05/14/22 05/14/22 05/14/22 08:35 08:35 08:35 WBC RBC Hgb Hct MCV MCH MCHC RDW Coeff of Hank Plt Count Neut % (Auto) Lymph % (Auto) [place] % (Auto) Eos % (Auto) Baso % (Auto) Neut # (Auto) Lymph # (Auto) [place] # (Auto) Eos # (Auto) Baso # (Auto) VBG pH VBG pCO2 VBG pO2 VBG HCO3 Sodium Potassium Chloride Carbon Dioxide BUN Creatinine Estimated Creat Clear Estimated GFR Glucose Hemoglobin A1c Lactic Acid F/U @ 2Hr Calcium Ammonia 9.0 L Lactate Baseline 1.3 Procalcitonin 0.42 C.trachomatis Ampl DNA HIV 1&2 Ab/P24 Ag 4thGn N.gonorrhoeae Ampl DNA
[2022-05-14] MEDS: ERTAPENEM 1 GM in 0.9 % SODIUM CHLORIDE Mini-bag 100 ML IVPB (10:06)
[2022-05-14] MEDS: ENOXAPARIN 40 MG/0.4 ML INJ SUBCUT (12:09)
[2022-05-14 12:51] LABS: Amphetamine Screen Urine Negative (Negative); Barbiturate Screen Urine Negative (Negative); Benzodiazepines Screen Urine Negative (Negative); Cannabinoid Screen Urine Negative (Negative); Cocaine Screen Urine Negative (Negative); Methadone Screen Urine Negative (Negative); Methamphetamines Screen Urine Negative (Negative); Phencyclidine Screen Urine Negative (Negative); Tricyclic Antidepressant Urine Negative (Negative)
[2022-05-14 13:02] LABS: Opiate Screen Urine POSITIVE (Negative); Oxycodone Screen Urine POSITIVE (Negative)
[2022-05-14] MEDS: cefTRIAXone 1 GM in 0.9 % SODIUM CHLORIDE Mini-bag 100 ML IVPB (13:59)
[2022-05-14] MEDS: diphenhydrAMINE 25 MG CAPSULE PO (18:43)
[2022-05-14] MEDS: DOXYCYCLINE HYCLATE 100 MG CAPSULE PO (21:47)
[2022-05-14] MEDS: INSULIN NPH 100 UNIT/ML 14 UNIT SUBCUT (21:47)
[2022-05-14] MEDS: ACETAMINOPHEN 325 MG TABLET 650 MG PO (21:50)
[2022-05-15] VITALS (10 sets, daily range): BP systolic 106–129; BP diastolic 63–92; PULSE 70–93; RESP 16–20; TEMP 36.7–37.2; O2SAT 90–94
[2022-05-15] MEDS: 0.9 % SODIUM CHLORIDE 1000 ml 1,000 ML 125 ML IV ×3 (04:22→20:21)
[2022-05-15] MEDS: ACETAMINOPHEN 325 MG TABLET 650 MG PO (05:58)
[2022-05-15] MEDS: ONDANSETRON 2 MG/ML inj 4 MG IVP ×2 (05:58→10:31)
[2022-05-15] MEDS: OMEPRAZOLE 20 MG CAPSULE DR 40 MG PO (06:21)
[2022-05-15] MEDS: KETOROLAC 15 MG/ML inj IVP ×2 (06:21→18:01)
[2022-05-15 07:23] LABS: Basophils Absolute Auto 0.01 K/uL (0.00-0.30); Basophils Percent Auto 0.1 % (0.0-3.0); Eosinophils Percent Auto 1.4 % (0.0-7.0); Hematocrit 33.2 % (37.0-53.0); Hemoglobin* 11.5 gm/dL (13.5-17.5); Immature Granulocytes Abs Auto 0.02 K/uL (0.00-0.30); Immature Granulocytes Pct Auto 0.3 %; Lymphocytes Percent Auto 12.6 % (20-44); Mean Corpuscular HGB Conc 35 gm/dL (32-36); Mean Corpuscular Hemoglobin 30 pg (26-34); Mean Corpuscular Volume 87 fL (80-100); Monocytes Percent Auto 8.2 % (0.0-11.0); Neutrophils Percent Auto 77.4 % (42.0-72.0); Red Blood Count 3.82 m/uL (4.30-5.90); White Blood Count* 6.98 K/uL (4.50-11.00)
--- NOTE | 2022-05-15 07:30 | PC.NURSE ---
[id number]: Patient very sleepy during shift. C/o constant headache 8-12/26. PRN Tylenol and Toradol administered. Patient educated on importance of eating and drinking fluids. Caffeine provided. Patient reluctant to get out of bed. Personnel Records Clerk verbalized importance of movement and encouraged patient use the BR and sit in the chair for a bit. Patient complied. R. testicle remains swollen, red, and warm. Ice provided. Tucks pads offered but declined. Girlfriend updated via phone. O2 sats >90% on RA.
[2022-05-15 07:44] LABS: Platelet Count* 300 K/uL (140-440); Slide Review Reflex No
[2022-05-15 07:45] LABS: Lactate Sepsis w/Reflex* 0.8 mmol/L (0.5-1.9)
[2022-05-15 08:15] LABS: Chloride* 107 mmol/L (96-114); Potassium* 3.7 mmol/L (3.6-5.1); Sodium* 134 mmol/L (135-149)
[2022-05-15 08:18] LABS: Blood Urea Nitrogen* 7 mg/dL (5-24); Carbon Dioxide* 22 mmol/L (20-32); Creatinine* 0.6 mg/dL (0.5-1.5); Est. Creatinine Clearance* 171.75; Estimated Glomerular Filt Rate 133 ml/min
[2022-05-15 08:19] LABS: Calcium* 8.1 mg/dL (8.4-10.6); Glucose* 193 mg/dL (60-115)
[2022-05-15] MEDS: INSULIN NPH 100 UNIT/ML 14 UNIT SUBCUT ×2 (08:50→21:40)
[2022-05-15] MEDS: DOXYCYCLINE HYCLATE 100 MG CAPSULE PO ×2 (08:51→21:13)
[2022-05-15] MEDS: SODIUM CHLORIDE 0.9 % (FLUSH) 10 ML SYRINGE 5 ML IVF ×2 (08:51→21:13)
[2022-05-15] MEDS: PANTOPRAZOLE SODIUM 40 MG INJ IVP (08:51)
[2022-05-15] MEDS: levoFLOXacin 750 MG TABLET PO (08:51)
[2022-05-15] MEDS: diphenhydrAMINE 25 MG CAPSULE PO ×2 (11:51→21:13)
[2022-05-15] MEDS: PROMETHAZINE 25 MG TABLET 12.5 MG PO (11:51)
[2022-05-15] MEDS: ACETAMINOPHEN 500 MG TABLET 1000 MG PO (11:51)
[2022-05-15] MEDS: ENOXAPARIN 40 MG/0.4 ML INJ SUBCUT (11:52)
[2022-05-15] MEDS: cefTRIAXone 1 GM in 0.9 % SODIUM CHLORIDE Mini-bag 100 ML IVPB (13:16)
--- NOTE | 2022-05-15 14:44 | PM.IMPN1 ---
Progress Note: A&P Assessment and plan (1) DKA, type 1: Problem details: - secondary to noncompliance, insulin insecurity, infection - currently doesn't have PCP (buys insulin OTC at [facility]) Status: Acute (2) Epididymitis: Problem details: - on Ceftriaxone (05/14) and Doxy (05/14) - currently has negative STI panel - has had 2 ultrasounds, most recent results (05/14) below: Findings: The right testis measures 4.2 x 2.3 x 3.3 cm and the left testis measures 4.8 x 2.6 x 2.3 cm. Enlarged right epididymis with markedly increased vascularity involving the right epididymis. Possible increase in vascularity involving the right testicle; rule out orchitis. Normal blood flow to the left testicle and epididymis. IMPRESSION: 1. Markedly increased vascularity to the right epididymis with increase in size of the epididymis indicating epididymitis. 2. No intratesticular pathology. 3. Questionable increase in blood flow to the right testicle. Status: Acute (3) Sepsis: Problem details: - secondary to #3; fevers and tachycardia noted 05/14 am, improved with antibiotics and IVFs Status: Acute (4) Headache: Problem details: - treated with Toradol, Tylenol, Phenergan, Benadryl with good results - no focal neurological findings Status: Acute Plan - continue antibiotics as above - continue SSI - appreciate input from regarding insurance assistance and dispo planning Subjective Date Seen: 05/15/22 Interval history: No acute events overnight. Scrotal pain improving, edema persists. + headache this morning, no neurological deficits or symptoms. VS reassuring, afebrile x24 hours. BG 130-217. Exam Narrative: Exam Narrative: GEN: Alert and oriented, laying comfortably in bed and answering questions appropriately HEENT: EOMIs bilaterally, no scleral icterus, no facial droop CV: RRR, No concerning murmurs, rubs, or gallops R: LCTA bilaterally without concerning wheezing, air movement adequate : Erythematous, edematous scrotum, R>L. No crepitus, no dark discoloration Ext: wwp, no concerning edema Skin: No concerning skin lesions or rashes on exposed skin Neuro: No focal deficits Psych: Appropriate Const: Vital Signs, click to edit/add: Vital Signs - 24 hr 05/14/22 15:00 05/14/22 16:25 05/14/22 15:00 Temperature 99 F 99 F Pulse Rate Pulse Rate [Pulse Oximeter] 93 93 Respiratory Rate 18 18 Blood Pressure [Le ft Arm] 111/69 Blood Pressure [Ri ght Arm] Pulse Oximetry 93 Oxygen Delivery Me thod Room Air 05/14/22 18:00 05/14/22 20:28 05/14/22 22:53 Temperature 98.0 F 99.8 F H Pulse Rate 86 Pulse Rate [Pulse Oximeter] 79 87 Respiratory Rate 18 18 Blood Pressure [Le ft Arm] 118/76 Blood Pressure [Ri ght Arm] 98/63 Pulse Oximetry 92 91 Oxygen Delivery Me thod Room Air Room Air 05/15/22 02:20 05/15/22 04:00 05/15/22 02:00 Temperature 98.3 F Pulse Rate 81 Pulse Rate [Pulse Oximeter] 81 Respiratory Rate 20 Blood Pressure [Le ft Arm] 116/73 Blood Pressure [Ri ght Arm] Pulse Oximetry 90 90 Oxygen Delivery Me thod Room Air 05/15/22 07:45 05/15/22 10:49 05/15/22 11:20 Temperature 98.1 F 98.1 F Pulse Rate 71 Pulse Rate [Pulse Oximeter] 83 70 Respiratory Rate 18 18 Blood Pressure [Le ft Arm] Blood Pressure [Ri ght Arm] 106/63 119/76 Pulse Oximetry 92 91 Oxygen Delivery Me thod Room Air Room Air Labs Labs: Laboratory Results - last 24 hr 05/15/22 05/15/22 05/15/22 07:00 07:36 07:36 WBC 6.98 RBC 3.82 L Hgb 11.5 L Hct 33.2 L MCV 87 MCH 30 MCHC 35 RDW Coeff of Hank 12.0 Plt Count 300 Neut % (Auto) 77.4 H Lymph % (Auto) 12.6 L [place] % (Auto) 8.2 Eos % (Auto) 1.4 Baso % (Auto) 0.1 Neut # (Auto) 5.40 Lymph # (Auto) 0.90 [place] # (Auto) 0.60 Eos # (Auto) 0.10 Baso # (Auto) 0.01 Sodium 134 L Potassium 3.7 Chloride 107 Carbon Dioxide 22 BUN 7 Creatinine 0.6 Estimated Creat Clear 171.75 Estimated GFR 133 Glucose 193 H Calcium 8.1 L Lactate Baseline 0.8
--- NOTE | 2022-05-15 18:38 | PC.NURSE ---
Pt is a SBA with one. Pt had a migraine and nausea this morning was given medication and resolved. Pt has eaten small amounts today. Pt has been pain free besides migraine. Pt is aware to notify staff if pain worsens or if color change to scrotum. Pt would like to monitor per self and nursing staff available for questions/concerns. Pt verbalizes that condition of scrotum has improved.
[2022-05-15] MEDS: SUMAtriptan succinate 50 MG TABLET PO (21:12)
[2022-05-15] MEDS: METOCLOPRAMIDE HCL 5 MG/ML INJ 10 MG IVP (21:14)
[2022-05-16] MEDS: KETOROLAC 15 MG/ML inj IVP ×2 (02:01→12:52)
[2022-05-16 02:03] VITALS: BP 131/88; PULSE 63; RESP 16; TEMP 37.1; O2SAT 91
[2022-05-16] MEDS: ACETAMINOPHEN 325 MG TABLET 650 MG PO ×2 (02:06→22:54)
[2022-05-16] MEDS: 0.9 % SODIUM CHLORIDE 1000 ml 1,000 ML 125 ML IV (03:40)
--- NOTE | 2022-05-16 05:36 | PC.NURSE ---
[id number]: Patient cooperative with cares. C/o headache/migraine throughout shift. MD updated, meds ordered and administered with some relief. Afebrile. Patient is notable stronger than last shift. Independent in room. Patient reports return of appetite.
[2022-05-16] MEDS: OMEPRAZOLE 20 MG CAPSULE DR 40 MG PO (06:33)
[2022-05-16 06:48] LABS: Basophils Absolute Auto 0.01 K/uL (0.00-0.30); Basophils Percent Auto 0.2 % (0.0-3.0); Eosinophils Absolute Auto 0.14 K/uL (0.00-0.50); Eosinophils Percent Auto 2.9 % (0.0-7.0); Hematocrit 31.1 % (37.0-53.0); Hemoglobin* 10.7 gm/dL (13.5-17.5); Immature Granulocytes Abs Auto 0.01 K/uL (0.00-0.30); Immature Granulocytes Pct Auto 0.2 %; Lymphocytes Absolute Auto 1.46 K/uL (0.90-2.90); Lymphocytes Percent Auto 30.7 % (20-44); Mean Corpuscular HGB Conc 34 gm/dL (32-36); Mean Corpuscular Hemoglobin 30 pg (26-34); Mean Corpuscular Volume 86 fL (80-100); Neutrophils Absolute Auto 2.71 K/uL (1.7-7.0); Platelet Count* 239 K/uL (140-440); RDW Coefficient of Variation % 11.8 % (11.5-15.5); Red Blood Count 3.62 m/uL (4.30-5.90); White Blood Count* 4.76 K/uL (4.50-11.00)
[2022-05-16 06:55] LABS: Slide Review Reflex No
[2022-05-16 07:01] LABS: Chloride* 110 mmol/L (96-114); Potassium* 3.2 mmol/L (3.6-5.1); Sodium* 138 mmol/L (135-149)
[2022-05-16 07:03] LABS: Creatinine* 0.6 mg/dL (0.5-1.5); Est. Creatinine Clearance* 171.75; Estimated Glomerular Filt Rate 133 ml/min
[2022-05-16 07:04] LABS: Blood Urea Nitrogen* 7 mg/dL (5-24); Calcium* 8.2 mg/dL (8.4-10.6); Carbon Dioxide* 24 mmol/L (20-32); Glucose* 149 mg/dL (60-115)
[2022-05-16 07:30] VITALS: BP 125/90; PULSE 63; RESP 18; TEMP 37.2; O2SAT 90
[2022-05-16] MEDS: OXYCODONE 5 MG TABLET PO (07:36)
--- NOTE | 2022-05-16 08:05 | CRLHL7_ITS ---
For Patients: As a result of the Century Cures Act, medical imaging exams and procedure reports are released immediately into your electronic medical record. You may view this report before your referring provider. If you have questions, please contact your health care provider. INDICATION: 31 year-old male. Follow up right-sided epididymitis. TECHNIQUE: Bilateral testicular and epididymal ultrasound. Grayscale imaging performed. Color Doppler evaluation was not performed. COMPARISON: May 14, 2022. May 13, 2022. FINDINGS: The right testicle measures 4.7 x 2.7 x 3 cm. The left testicle measures 4.6 x 3.0 x 3.3 cm. Blood flow is identified within each testicle. Formal Doppler evaluation was not undertaken. There is no convincing evidence for torsion. Heterogeneous echotexture of the right testicle has clearly progressed compared to the 2 prior studies. This would suggest progressive orchitis with the associated known right-sided epididymitis. Specifically there is increased vascularity of the right epididymis and right testicle compatible with epididymo-orchitis. No definite abscess. The left testicle is now mildly hyperemic and this is new. Initially there is a new tiny left-sided hydrocele. The left epididymis is unremarkable. IMPRESSION: 1. Progressive and heterogeneous echotexture of the right testicle may simply reflect progressive orchitis on the right. No definite abscess. 2. Persistent right-sided epididymitis. 3. Increased blood flow to the left testicle with a tiny left-sided hydrocele. These latter findings are new and could be reactive, related to the right-sided findings. Dictated by Thompson Lux MD @ 05/16/2022 9:45:20 AM (Electronically Signed)
[2022-05-16] MEDS: ACETAMINOPHEN 500 MG TABLET 1000 MG PO (08:31)
[2022-05-16] MEDS: DOXYCYCLINE HYCLATE 100 MG CAPSULE PO ×2 (08:32→20:53)
[2022-05-16] MEDS: PANTOPRAZOLE SODIUM 40 MG INJ IVP (08:32)
[2022-05-16] MEDS: diphenhydrAMINE 25 MG CAPSULE PO (08:32)
[2022-05-16] MEDS: PROMETHAZINE 25 MG TABLET 12.5 MG PO ×2 (08:32→22:54)
[2022-05-16] MEDS: INSULIN NPH 100 UNIT/ML 14 UNIT SUBCUT ×2 (09:20→20:53)
[2022-05-16] MEDS: POTASSIUM BICARB 25 MEQ EFFERVESCENT TAB PO ×3 (10:34→13:54)
[2022-05-16 10:40] VITALS: BP 118/85; PULSE 68; RESP 16; TEMP 36.1; O2SAT 91
--- NOTE | 2022-05-16 11:53 | PM.IMPN1 ---
Progress Note: A&P Assessment and plan (1) DKA, type 1: Problem details: - secondary to noncompliance, insulin insecurity, infection - currently doesn't have PCP (buys insulin OTC at [facility]), appreciate input from regarding insurance coverage and f/u Status: Acute (2) Epididymitis: Problem details: - on Ceftriaxone (05/14) and Doxy (05/14) - currently has negative STI panel - discussed with Dr. Metcalf of Urology on 05/16; no change to plan of care given objective improvement in VS and labs, may take weeks for scrotal edema to improve - has had 3 ultrasounds, most recent results (05/16) below: IMPRESSION: 1. Progressive and heterogeneous echotexture of the right testicle may simply reflect progressive orchitis on the right. No definite abscess. 2. Persistent right-sided epididymitis. 3. Increased blood flow to the left testicle with a tiny left-sided hydrocele. These latter findings are new and could be reactive, related to the right-sided findings. Status: Acute Plan - continue antibiotics - given continued improvement in labs and overall clinical picture, likely ready for d/c home in 1-2 days - [place] updated by phone, questions answered Subjective Date Seen: 05/16/22 Interval history: No acute events overnight. Norbert remains afebrile. Scrotal pain waxes and wanes, edema persists. Continues to have intermittent headache; good relief with Tylenol + Phenergan + Benadryl. BG 130s-240s over past 24 hours. Exam Narrative: Exam Narrative: GEN: Alert HEENT: EOMIs bilaterally, no scleral icterus CV: RRR, No concerning murmurs, rubs, or gallops R: LCTA bilaterally without concerning wheezing, rales, or rhonchi : Persistent erythema and edema of scrotum, R>L. Moderate discomfort with palpation, no crepitus Ext: wwp, no concerning edema Skin: No other concerning skin lesions or rashes on exposed skin Neuro: No focal deficits Psych: Appropriate Const: Vital Signs, click to edit/add: Vital Signs - 24 hr 05/15/22 14:53 05/15/22 15:22 05/15/22 19:32 Temperature 99 F 98.6 F Pulse Rate 85 Pulse Rate [Pulse Oximeter] 90 93 Respiratory Rate 18 16 Blood Pressure [Le ft Arm] 116/76 129/92 H Blood Pressure [Ri ght Arm] Pulse Oximetry 94 93 Oxygen Delivery Me thod Room Air Room Air 05/15/22 21:45 05/16/22 02:03 05/16/22 07:30 Temperature 98.3 F 98.7 F 98.9 F Pulse Rate Pulse Rate [Pulse Oximeter] 85 63 63 Respiratory Rate 16 16 18 Blood Pressure [Le ft Arm] 110/65 131/88 125/90 H Blood Pressure [Ri ght Arm] Pulse Oximetry 93 91 90 Oxygen Delivery Me thod Room Air Room Air Room Air 05/16/22 10:40 Temperature 97 F L Pulse Rate Pulse Rate [Pulse Oximeter] 68 Respiratory Rate 16 Blood Pressure [Le ft Arm] Blood Pressure [Ri ght Arm] 118/85 Pulse Oximetry 91 Oxygen Delivery Me thod Room Air Labs Labs: Laboratory Results - last 24 hr 05/16/22 05/16/22 06:31 06:31 WBC 4.76 RBC 3.62 L Hgb 10.7 L Hct 31.1 L MCV 86 MCH 30 MCHC 34 RDW Coeff of Hank 11.8 Plt Count 239 Neut % (Auto) 57.0 Lymph % (Auto) 30.7 [place] % (Auto) 9.0 Eos % (Auto) 2.9 Baso % (Auto) 0.2 Neut # (Auto) 2.71 Lymph # (Auto) 1.46 [place] # (Auto) 0.40 Eos # (Auto) 0.14 Baso # (Auto) 0.01 Sodium 138 Potassium 3.2 L Chloride 110 Carbon Dioxide 24 BUN 7 Creatinine 0.6 Estimated Creat Clear 171.75 Estimated GFR 133 Glucose 149 H Calcium 8.2 L
[2022-05-16] MEDS: ENOXAPARIN 40 MG/0.4 ML INJ SUBCUT (12:03)
[2022-05-16] MEDS: cefTRIAXone 1 GM in 0.9 % SODIUM CHLORIDE Mini-bag 100 ML IVPB (12:47)
--- NOTE | 2022-05-16 13:40 | CRLHL7_ITS ---
For Patients: As a result of the Century Cures Act, medical imaging exams and procedure reports are released immediately into your electronic medical record. You may view this report before your referring provider. If you have questions, please contact your health care provider. INDICATION: Headache COMPARISON: None TECHNIQUE: CT examination of the head was performed as axial sections without intravenous contrast. Images were obtained from the vertex of the skull through the skull base. Please note that all CT scans at this facility use dose modulation, iterative reconstruction, and/or weight-based dosing when appropriate to reduce radiation dose to as low as reasonably achievable. FINDINGS: The brain shows no sign of mass lesion, mass effect, hemorrhage, or edema. The ventricles and sulci are normal in appearance for the patient`s age. The visualized portions of the orbits are normal in appearance. The osseous structures are normal in their appearance with no sign of abnormality in the skull base or calvarium. Sinus mucosal inflammatory disease incidentally noted. This severely affects the right maxillary sinus and to a lesser degree the ethmoid air cells. Appropriate follow-up advised. This appears to be primarily chronic disease. Possible bone expansion or erosion of the superomedial right maxillary sinus. Consider a formal sinus CT. IMPRESSION: 1. Normal unenhanced head CT. 2. Significant sinus mucosal inflammatory disease incidentally noted. This most affects the right maxillary sinus and to a lesser degree the ethmoid air cells. Please review the common. Please note that all CT scans at this facility use dose modulation, iterative reconstruction, and/or weight-based dosing when appropriate to reduce radiation dose to as low as reasonably achievable. Dictated by Eugene Brice MD @ 05/16/2022 2:59:38 PM (Electronically Signed)
[2022-05-16 15:38] VITALS: BP 131/79; PULSE 61; RESP 16; TEMP 36.4; O2SAT 95
--- NOTE | 2022-05-16 17:45 | PC.NURSE ---
Pt has had pain ranging from 0-7 during shift. See EMAR for intervention. Pt had headache again during shift MD ordered medication regimen for Pt. Relief since 4pm with headache. MD order head CT for Pt and was completed. Pt possible discharge home tomorrow. Pt up in room independently or with SBA as needed. Pt did not order food until around 3pm.
[2022-05-16 19:00] VITALS: BP 120/80; PULSE 64; RESP 16; TEMP 36.7; O2SAT 93
[2022-05-16] MEDS: SODIUM CHLORIDE 0.9 % (FLUSH) 10 ML SYRINGE 5 ML IVF (20:57)
[2022-05-16 23:00] VITALS: BP 124/89; PULSE 68; RESP 16; TEMP 37.2; O2SAT 95
[2022-05-17 03:00] VITALS: BP 125/72; PULSE 77; RESP 16; TEMP 36.9; O2SAT 95
[2022-05-17] MEDS: OMEPRAZOLE 20 MG CAPSULE DR 40 MG PO (06:39)
[2022-05-17 06:41] LABS: Lactate* 1.5 mmol/L (0.5-1.9)
--- NOTE | 2022-05-17 06:49 | PC.NURSE ---
Shift note: Pt has been doing well. Migraine has minimal tonight, only complained of pain level of 4 which responded very well with Tylenol. Pt had adequate sleep tonight.
[2022-05-17 06:51] LABS: Basophils Absolute Auto 0.02 K/uL (0.00-0.30); Basophils Percent Auto 0.3 % (0.0-3.0); Eosinophils Absolute Auto 0.19 K/uL (0.00-0.50); Eosinophils Percent Auto 3.2 % (0.0-7.0); Hematocrit 31.6 % (37.0-53.0); Hemoglobin* 11.1 gm/dL (13.5-17.5); Immature Granulocytes Abs Auto 0.02 K/uL (0.00-0.30); Immature Granulocytes Pct Auto 0.3 %; Lymphocytes Absolute Auto 2.01 K/uL (0.90-2.90); Lymphocytes Percent Auto 34.4 % (20-44); Mean Corpuscular HGB Conc 35 gm/dL (32-36); Mean Corpuscular Hemoglobin 30 pg (26-34); Mean Corpuscular Volume 85 fL (80-100); Monocytes Percent Auto 9.1 % (0.0-11.0); Neutrophils Absolute Auto 3.08 K/uL (1.7-7.0); Neutrophils Percent Auto 52.7 % (42.0-72.0); Platelet Count* 220 K/uL (140-440); RDW Coefficient of Variation % 11.8 % (11.5-15.5); Red Blood Count 3.74 m/uL (4.30-5.90); White Blood Count* 5.85 K/uL (4.50-11.00)
[2022-05-17 06:58] LABS: Chloride* 104 mmol/L (96-114); Sodium* 137 mmol/L (135-149)
[2022-05-17 06:59] LABS: Potassium* 3.4 mmol/L (3.6-5.1)
[2022-05-17 07:01] LABS: Blood Urea Nitrogen* 8 mg/dL (5-24); Carbon Dioxide* 29 mmol/L (20-32); Creatinine* 0.5 mg/dL (0.5-1.5); Est. Creatinine Clearance* 206.09; Estimated Glomerular Filt Rate 141 ml/min
[2022-05-17 07:02] LABS: Calcium* 8.6 mg/dL (8.4-10.6); Glucose* 121 mg/dL (60-115)
[2022-05-17 07:10] LABS: Slide Review Reflex No
[2022-05-17 07:42] VITALS: BP 130/84; PULSE 63; RESP 16; TEMP 36.5; O2SAT 98
[2022-05-17] MEDS: ACETAMINOPHEN 500 MG TABLET 1000 MG PO (07:53)
[2022-05-17] MEDS: diphenhydrAMINE 25 MG CAPSULE PO (07:53)
[2022-05-17] MEDS: PROMETHAZINE 25 MG TABLET 12.5 MG PO (07:53)
[2022-05-17] MEDS: DOXYCYCLINE HYCLATE 100 MG CAPSULE PO (08:35)
[2022-05-17] MEDS: INSULIN NPH 100 UNIT/ML 14 UNIT SUBCUT (08:36)
[2022-05-17] MEDS: CYCLOBENZAPRINE HCL 10 MG TABLET 5 MG PO (08:36)
--- NOTE | 2022-05-17 11:18 | PM.DS1 ---
DS: Providers Provider Date Seen: 05/17/22 Date of admission: 05/13/22 09:15 Primary care physician: Not a Local Provider Admitting Clinician: Edmundo Buck MD Consults: Social work, phone consults with Urology and ENT Attending Physician on discharge: Lizzette Bacon MD Date of Discharge: 05/17/22 DS: Diagnosis Discharge Diagnosis (1) Headache: Status: Acute Problem details: - treated with Toradol, Tylenol, Phenergan, Benadryl with intermittent success - also on Doxycycline for sinusitis - no focal neurological findings (2) Epididymitis: Status: Acute Problem details: - treated with Ceftriaxone (05/14) and Doxy (05/14), discharged home on 2 week course of Doxycycline - negative STI panel - d/w Dr. Metcalf of Urology by phone on 05/16; no change to plan of care given objective improvement in VS + labs, may take weeks for scrotal edema to improve - has had 3 ultrasounds during stay, most recent results (05/16) below: IMPRESSION: 1. Progressive and heterogeneous echotexture of the right testicle may simply reflect progressive orchitis on the right. No definite abscess. 2. Persistent right-sided epididymitis. 3. Increased blood flow to the left testicle with a tiny left-sided hydrocele. These latter findings are new and could be reactive, related to the right-sided findings. (3) DKA, type 1: Status: Acute Problem details: - secondary to noncompliance, insulin insecurity, infection, resolved early during stay - currently doesn't have PCP (buys insulin OTC at [facility]), appreciate input from regarding insurance coverage and f/u (4) Sinusitis: Status: Acute Problem details: - history of dental abscess on the right, requiring surgical intervention in December and January 2022 - CT findings noted below, deferred formal sinus CT until completion of doxycycline (reviewed with ENT by phone) FINDINGS: The brain shows no sign of mass lesion, mass effect, hemorrhage, or edema. The ventricles and sulci are normal in appearance for the patient's age. The visualized portions of the orbits are normal in appearance. The osseous structures are normal in their appearance with no sign of abnormality in the skull base or calvarium. Sinus mucosal inflammatory disease incidentally noted. This severely affects the right maxillary sinus and to a lesser degree the ethmoid air cells. Appropriate follow-up advised. This appears to be primarily chronic disease. Possible bone expansion or erosion of the superomedial right maxillary sinus. Consider a formal sinus CT. IMPRESSION: 1. Normal unenhanced head CT. 2. Significant sinus mucosal inflammatory disease incidentally noted. This most affects the right maxillary sinus and to a lesser degree the ethmoid air cells. Please review the common. Dictated by Eugene Brice MD @ 05/16/2022 2:59:38 PM DS: Summary Hospital Course Hospital Course: 31-year-old male with history of type 1 diabetes, admitted to the hospital for DKA. On admission, also found to have scrotal edema and pain, subsequently diagnosed with epididymitis. DKA resolved on hospital day 1, patient transition to home insulin dosing. He has not been following with a PCP regularly, buys insulin OTC at [facility]. We discussed the importance of following up with primary care and Endocrinology; set up with the PCP upon discharge and given resources by social work. Epididymitis initially treated with Ertapenem, then transitioned to ceftriaxone and doxycycline. STI panel negative, urine culture negative. Continued to have intermittent pain and edema; given findings, ultrasound was repeated during stay which showed no evidence of torsion or abscess. Reviewed with Urology by phone, recommend full 14 day course of antibiotics, expect slow improvement in edema, consider outpatient follow-up with Urology (interestingly, this is patient's 3rd bout of epididymitis). Intermittent headache noted throughout stay, present in forehead, posterior neck. We treated headache with Tylenol, Phenergan, Benadryl; this was intermittently effective. Given symptoms, CT of head obtained (see findings above). ENT recommends dedicated sinus CT after completion of course of doxycycline as an outpatient. Patient also incidentally noted to have normocytic anemia after fluid resuscitation (admission hemoglobin > 14). No evidence of acute bleeding noted, recommend outpatient monitoring and follow-up. Status at Discharge Functional status at discharge: independent ambulation Overall status at discharge: patient is progressing back to baseline Time Spent with Patient Time attestation: Total time spent providing and/or coordinating discharge services: Time spent: Greater than 30 minutes Specific discharge activities: Medication reconciliation, care coordination Exam Narrative: Exam Narrative: GEN: Alert and oriented, nontoxic in appearance HEENT: PERRL and EOMIs bilaterally, no scleral icterus, no evidence of acute infectious dental process noted CV: RRR, No concerning murmurs, rubs, or gallops R: LCTA bilaterally without concerning wheezing, air movement adequate Ext: wwp, no concerning edema Skin: No concerning skin lesions or rashes on exposed skin Neuro: No focal deficits, no resting tremor, gait normal Psych: Appropriate Const: Vital Signs, click to edit/add: Vital Signs - 24 hr 05/16/22 15:38 05/16/22 15:38 05/16/22 19:00 Temperature 97.6 F 98.1 F Pulse Rate [Pulse Oximeter] 61 64 Respiratory Rate 16 16 16 Blood Pressure [Le ft Arm] 120/80 Blood Pressure [Ri ght Arm] 131/79 Pulse Oximetry 95 93 Oxygen Delivery Me thod Room Air Room Air 05/16/22 23:00 05/17/22 03:00 05/17/22 07:42 Temperature 98.9 F 98.4 F 97.7 F Pulse Rate [Pulse Oximeter] 68 77 63 Respiratory Rate 16 16 16 Blood Pressure [Le ft Arm] 124/89 125/72 Blood Pressure [Ri ght Arm] 130/84 Pulse Oximetry 95 95 98 Oxygen Delivery Me thod Room Air Room Air Room Air DS: Data Data Completed and Pending Labs on day of discharge: Labs from last 24 hours 05/17/22 05/17/22 05/17/22 06:25 06:25 06:25 WBC 5.85 RBC 3.74 L Hgb 11.1 L Hct 31.6 L MCV 85 MCH 30 MCHC 35 RDW Coeff of Hank 11.8 Plt Count 220 Neut % (Auto) 52.7 Lymph % (Auto) 34.4 [place] % (Auto) 9.1 Eos % (Auto) 3.2 Baso % (Auto) 0.3 Neut # (Auto) 3.08 Lymph # (Auto) 2.01 [place] # (Auto) 0.50 Eos # (Auto) 0.19 Baso # (Auto) 0.02 Sodium 137 Potassium 3.4 L Chloride 104 Carbon Dioxide 29 BUN 8 Creatinine 0.5 Estimated Creat Clear 206.09 Estimated GFR 141 Glucose 121 H Lactate 1.5 Calcium 8.6 Preliminary micro results at discharge 05/14/22 08:30 Blood Culture - Preliminary Blood NO GROWTH AFTER 72 HOURS 05/14/22 08:35 Blood Culture - Preliminary Blood NO GROWTH AFTER 72 HOURS 05/13/22 01:47 Blood Culture - Preliminary Blood NO GROWTH AFTER 96 HOURS 05/13/22 01:42 Blood Culture - Preliminary Blood NO GROWTH AFTER 96 HOURS Discharge Plan Discharge Disposition: Home, Self-Care Date of Admission: 05/13/22 09:15 Attending Provider on Discharge: Lizzette Bacon Primary Care Provider: Provider,Not a Local Condition: Stable Anticipated Discharge Date/Time: 05/17/22 13:00 Discharge Medications: New doxycycline hyclate 100 mg Capsule 100 mg PO BID 12 Days Qty: 24 0RF oxycodone 5 mg Tablet 5 mg PO Q6H PRN (Reason: pain) Qty: 10 0RF Continued Humulin R Regular U-100 Insuln 100 unit/mL solution 1 sliding scale dose subcut USEASDIRECTD Label Comments: PATIENT GIVES HIMSELF 25-50 UNITS DEPENDING ON MEAL SIZE/CARB CONTENT 6-10 TIMES DAILY Discharge Orders: Discharge Order (Routine); Ordered 05/17/22 Ordered By: Lizzette Bacon Patient Education: Doxycycline (By mouth), Oxycodone, Rapid Release (By mouth), Epididymo-Orchitis (GEN), Diabetic Ketoacidosis (DC) Additional Instructions: Medications sent to pharmacy: 1. Doxycycline (antibiotic) 2. Oxycodone (severe pain) Take antibiotics twice/day with food for 12 more days (this covers your epididymitis AND your sinusitis). You need to see a PCP in 7-10 days for hospital followup, and to discuss whether you need further imaging of your sinuses or scrotum, depending on symptoms. Tight underwear, rest, anti-inflammatories in addition to scheduled Tylenol for discomfort. I recommend scheduling 1000mg of Tylenol every 8 hours, taking 600mg of Ibuprofen in between Tylenol dosing, pushing fluids, using oxycodone for severe pain. Activity Level: Light activity and Other Activity Detail: NO WORK FOR 7-10 days, then slowly advance activity as tolerated Discharge Diet: Diabetic and Other Follow Up Appointments: [facility] [Provider Group] - 05/24/22 10:40 am ([facility], [place] phone [phone] Seth Saleem) Provider,Not a Local [Primary Care Provider] - (Please call [facility] in [place] at [phone] to set up a primary care physician - will need a visit in the next 7-10 days to establish care and have a posthospital visit (issues to discuss: epididymitis, DM1).) Forms: Social[employer] Info Instructions
--- NOTE | 2022-05-17 15:27 | PC.SOCIAL ---
Late Entry: On 05/15/22, met with regarding insurance question. Pt is currently uninsured but has a bill from [facility] with a start date of pt's [facility] being 05/17/22. is aware of hospital financial sales representative program if they want to apply for financial assistance for this hospital stay.
== END 2022-05-17 12:30 | disposition home or self-care (01) | DRG 420 ==
LOC: ED 05-13 00:58 → MEDSURG 05-13 02:39
PROVIDERS: Family Medicine; Hospitalist; Admitting Provider Internal Medicine; Emergency Provider Internal Medicine; Visit Provider Hospitalist
DX: E10.10 Type 1 diabetes mellitus with ketoacidosis without coma (principal); Z59.7 Insufficient social insurance and welfare support; Z91.120 Patient's intentional underdosing of medication regimen due to financial hardship; N45.1 Epididymitis; J01.90 Acute sinusitis, unspecified; R51.9 Headache, unspecified; N50.819 Testicular pain, unspecified; R10.30 Lower abdominal pain, unspecified; Z79.4 Long term (current) use of insulin; D64.9 Anemia, unspecified
CPT/HCPCS: 36415; 70450; 74177; 76870; 76882; 80048; 80053; 80076; 80306; 81003; 81015; 82140; 82150; 82803; 82962; 83036; 83605; 83690; 83735; 84100; 84145; 85025; 86703; 87040; 87086; 87110; 87140; 87491; 87591; 87635; 93976; 99283; 99285; A9270; C9113; G0378; J0696; J1170; J1335; J1650; J1885; J1956; J2405; J2765; J3480; J3590; J7030; J7120; Q9967